=== PATIENT | female | born 1975 | race Caucasian/White ===

== ENCOUNTER 2019-05-13 06:00 | Outpatient (RCR) | payer OTHER, SELFPAY ==
[2019-04-27 07:43] VITALS: BMI 26.1
[2019-04-27 08:55] VITALS: BP 101/70; PULSE 69; RESP 18; TEMP 36.6; O2SAT 100
[2019-04-27] MEDS: vedolizumab 300 MG in sodium chloride 0.9% 250 ML 500 MG IV (09:07)
[2019-05-11 06:12] VITALS: BP 106/58; PULSE 77; RESP 18; TEMP 36.3; O2SAT 97
--- NOTE | 2019-05-11 08:05 | PC.NURSE ---
PHARMACY DIDN'T HAVE MEDICATION. PT WILL HAVE TO COME BACK FRIDAY
[2019-05-13 06:10] VITALS: BP 111/74; PULSE 78; RESP 18; TEMP 36.4; O2SAT 97
[2019-05-13] MEDS: vedolizumab 300 MG in sodium chloride 0.9% 250 ML 500 MG IV (06:34)
== END 2019-05-21 23:59 | disposition home or self-care (01) ==
LOC: OPS 06:00
PROVIDERS: Family Provider Family Medicine; PCP Family Medicine; Visit Provider Internal Medicine
DX: K51.90 Ulcerative colitis, unspecified, without complications (principal)
CPT/HCPCS: 96365; J3380; J7050

== ENCOUNTER 2019-06-22 06:09 | Outpatient (CLI) | payer OTHER, SELFPAY ==
[2019-06-22 06:26] VITALS: BP 109/63; PULSE 81; RESP 18; TEMP 36.4; O2SAT 98; BMI 25.7
[2019-06-22] MEDS: vedolizumab 300 MG in sodium chloride 0.9% 250 ML 500 MG IV (06:45)
== END 2019-06-22 06:10 | disposition home or self-care (01) ==
PROVIDERS: Family Provider Family Medicine; PCP Family Medicine; Visit Provider Internal Medicine
DX: K51.90 Ulcerative colitis, unspecified, without complications (principal)
CPT/HCPCS: 96365; J3380; J7050

== ENCOUNTER → 2019-08-24 07:29 | Day surgery (SDC) | payer OTHER, SELFPAY ==
[2019-08-24] MEDS: vedolizumab 300 MG in sodium chloride 0.9% 250 ML 500 MG IV (09:30)
[2019-08-24 10:15] VITALS: BP 106/75; PULSE 80; RESP 16; TEMP 36.3; O2SAT 99
== END ==
PROVIDERS: Family Provider Family Medicine; PCP Family Medicine; Visit Provider Internal Medicine
DX: K51.90 Ulcerative colitis, unspecified, without complications (principal)
CPT/HCPCS: 96365; J3380; J7050

== ENCOUNTER 2019-08-30 08:35 | Outpatient (CLI) | payer OTHER, SELFPAY ==
--- NOTE | 2019-08-30 08:41 | XR_ITS ---
WS: [id number] RIGHT FOOT: 3 VIEW(S) TECHNIQUE: AP, oblique and lateral. HISTORY: Right Navicular pain COMPARISON: None available. No acute fracture or dislocation. Normal tarsal/metatarsal alignment. No soft tissue abnormality or bone destruction. XR/XR foot RT min 3V* [id number] IMPRESSION: Normal RIGHT foot.
== END 2019-08-30 08:36 | disposition home or self-care (01) ==
LOC: RAD 08:38
PROVIDERS: Family Provider Family Medicine; PCP Family Medicine; Visit Provider Podiatrist Foot & Ankle Surgery
DX: M79.671 Pain in right foot (principal)
CPT/HCPCS: 73630

== ENCOUNTER 2019-09-16 12:51 | Outpatient (CLI) | payer OTHER, SELFPAY ==
--- NOTE | 2019-09-16 12:56 | MR_ITS ---
WS: [id number] INDICATION: Navicular fracture TECHNIQUE: MR of the right foot without gadolinium enhancement. Sagittal PD, sagittal STIR, sagittal T1, axial T1, coronal PD, axial PD, axial T2, axial STIR. Coronal T2 fat sat. FINDINGS: Correlation radiograph August 30, 2019 Diffuse T2 signal abnormality involving the navicular with central longitudinal nondisplaced fracture . Diffuse surrounding soft tissue edema. Normal talar neck. Normal talar dome. Additional small amou nt of edema along the anterior calcaneus extending to the sinus Tarsi consistent with additional nond isplaced fracture. Fracture line is visualized on the T1 imaging with slight depression at the sinus Tarsi and middle facet. Distal Achilles appears normal. Normal plantar fascia. Normal cuboid and cuneiforms. Peroneal tendons appear normal. Normal visualized extensor and flexor compartment tendons. MR/MR foot RT wo con* [id number] IMPRESSION: 1. Diffuse edema involving the navicular with longitudinal nondisplaced fractu re centrally. Surrounding soft tissue edema. 2. Talus and adjacent tarsal bones are normal in appearance. 3. Additional tiny nondisplaced fracture along the sinus tarsi extending into the anterior process of the calcaneus. Associated edema in the calcaneus.
== END 2019-09-16 12:52 | disposition home or self-care (01) ==
LOC: RADWPI 12:54
PROVIDERS: Family Provider Family Medicine; PCP Family Medicine; Visit Provider Podiatrist Foot & Ankle Surgery
DX: S92.254A Nondisplaced fracture of navicular [scaphoid] of right foot, initial encounter for closed fracture (principal); S92.811A Other fracture of right foot, initial encounter for closed fracture; X58.XXXA Exposure to other specified factors, initial encounter; R60.9 Edema, unspecified
CPT/HCPCS: 73718

== ENCOUNTER 2019-09-16 16:51 | Outpatient (CLI) | payer OTHER, SELFPAY | END 2019-09-16 16:52 | disposition home or self-care (01) | LOC: SPT 16:51 | PROVIDERS: Family Provider Family Medicine; PCP Family Medicine; Visit Provider Podiatrist Foot & Ankle Surgery | DX: Z46.89 Encounter for fitting and adjustment of other specified devices (principal); M76.821 Posterior tibial tendinitis, right leg | CPT/HCPCS: 97760; L3030; L4361 ==

== ENCOUNTER → 2019-10-27 08:17 | Outpatient (BNVA) | payer OTHER, SELFPAY | PROVIDERS: Family Provider Family Medicine; PCP Family Medicine; Visit Provider Podiatrist Foot & Ankle Surgery | DX: M79.671 Pain in right foot (principal); S92.254A Nondisplaced fracture of navicular [scaphoid] of right foot, initial encounter for closed fracture; X58.XXXA Exposure to other specified factors, initial encounter | CPT/HCPCS: 73630 ==

== ENCOUNTER 2019-10-27 10:36 | Outpatient (CLI) | payer OTHER, SELFPAY | END 2019-10-27 10:37 | disposition home or self-care (01) | LOC: SPT 10:36 | PROVIDERS: Family Provider Family Medicine; PCP Family Medicine; Visit Provider Podiatrist Foot & Ankle Surgery | DX: Z46.89 Encounter for fitting and adjustment of other specified devices (principal); M76.821 Posterior tibial tendinitis, right leg | CPT/HCPCS: L4361 ==

== ENCOUNTER → 2019-11-18 13:34 | Outpatient (BNVA) | payer OTHER, SELFPAY | PROVIDERS: Family Provider Family Medicine; PCP Family Medicine; Visit Provider Podiatrist Foot & Ankle Surgery | DX: S92.254D Nondisplaced fracture of navicular [scaphoid] of right foot, subsequent encounter for fracture with routine healing (principal) | CPT/HCPCS: 73610 ==

== ENCOUNTER → 2019-12-13 14:13 | Outpatient (BNVA) | payer OTHER, SELFPAY | PROVIDERS: Family Provider Family Medicine; PCP Family Medicine; Visit Provider Podiatrist Foot & Ankle Surgery | DX: S92.254D Nondisplaced fracture of navicular [scaphoid] of right foot, subsequent encounter for fracture with routine healing (principal); M79.671 Pain in right foot; X58.XXXD Exposure to other specified factors, subsequent encounter | CPT/HCPCS: 73630 ==

== ENCOUNTER 2019-12-15 10:06 | Outpatient (CLI) | payer OTHER, SELFPAY ==
--- NOTE | 2019-12-15 10:15 | XRR_ITS ---
PROCEDURE INFORMATION: Exam: XR Left Shoulder Exam date and time: 12/15/2019 10:27 AM Age: 44 years old Clinical indication: Pain and injury or trauma; Fall; Initial encounter; Blunt trauma (contusions or hematomas; Shoulder; Left; Injury details: Fell while using knee scooter 6 weeks ago; Additional info: Left shoulder pain TECHNIQUE: Imaging protocol: XR Left shoulder. Views: 2 or more views. COMPARISON: No relevant prior studies available. FINDINGS: Bones/joints: Normal. Soft tissues: Normal. XR/XR shoulder LT min 2V* [id number] IMPRESSION: No acute findings.
== END 2019-12-15 10:07 | disposition home or self-care (01) ==
LOC: RAD 10:10
PROVIDERS: PCP Family Medicine; Visit Provider Orthopaedic Surgery
DX: M25.512 Pain in left shoulder (principal)
CPT/HCPCS: 73030

== ENCOUNTER 2020-01-12 12:55 | Outpatient (CLI) | payer OTHER, SELFPAY ==
--- NOTE | 2020-01-12 13:05 | MR_ITS ---
WS: [id number] MRI LEFT SHOULDER ARTHROGRAM HISTORY: PAIN COMPARISON: Radiographs 12/15/2019. TECHNIQUE: Pre and postcontrast imaging. Gadolinium mixture was injected under fluoroscopy. Coronal T 1 fat sat, sagittal T2 fat sat, coronal T2 fat sat, axial proton density, axial T1 nonfat saturation and ABER sagittal T1 fat sat views are submitted. Prearthrogram imaging: Mild degenerative arthritis at the AC joint. Small osteophytes extend towards the supraspinatus muscle and tendon. There is a very minimal amount of subacromial and subdeltoid flu id. Moderate amount of marrow edema in the superior medial humeral head. There is flattening of the magno x of the medial humeral head with loss of the normal overlying cortical signal. Consistent with trabe cular injury and compression fracture. Abnormal marrow signal extends into the humeral neck. Abnormal signal and shape of the anterior labrum. Biceps tendon remains within the bicipital groove. Abnormal signal in the middle glenohumeral ligament. No definite rotator cuff tear is identified. Post arthrogram imaging: No contrast extending through the rotator cuff into the subacromial or subdeltoid bursa. Biceps tendo n remains in normal position. The middle glenohumeral ligament is redundant and partially torn distally. The anterior labrum is parish bular shape. On the precontrast sequences there is abnormal signal within the labrum. Contrast does n ot extend into the anterior labrum but still suspect abnormal labrum. MR/MR shoulder LT wo/w con [id number] IMPRESSION: 1. No rotator cuff tear. 2. Marrow edema with trabecular injury and cortical fracture involving the sup erior medial humeral head. 3. Partially torn middle glenohumeral ligament. 4. Highly suspicious for tear involving the anterior labrum. On the precontras t imaging there is abnormal signal and shape of the anterior labrum. Post arthr ogram imaging there is a lobulated shape of the labrum but no contrast extendin g into the suspected labral tear. 5. Biceps tendon remains in good position. 6. Mild AC joint arthritis.
--- NOTE | 2020-01-12 13:06 | IR_ITS ---
WS: [id number] LEFT SHOULDER ARTHROGRAM UNDER FLUOROSCOPY. PRIOR TO MRI EVALUATION. HISTORY: LEFT SHOULDER PAIN COMPARISON: None available. FLUOROSCOPY TIME: 1.5 minutes. Procedure, risks and complications were explained to the patient. Consent has been obtained. Under fluoroscopic guidance the skin is marked over the medial superior third of the humeral head, cl eansed with ChloraPrep and anesthetized with lidocaine. 22-gauge spinal needle is inserted to the cor trevon of the humeral head. Test injection with Omnipaque reveals the needle is appropriately positioned in the joint. A mixture of 10 cc sterile saline, 5 cc Omnipaque and 0.1 mmol gadolinium are injected under fluoroscopic guidance. Patient tolerated the joint distention well. No complications. Good distention of the joint space with contrast. No extravasation. IR/IR arthrogram shoulderLT [id number] IMPRESSION: Uncomplicated LEFT shoulder joint injection prior to MRI.
[2020-01-12] MEDS: iohexol 240 mg/mL 50 mL Btl INTRA-ARTI (14:37)
== END 2020-01-12 12:56 | disposition home or self-care (01) ==
LOC: RADWPI 13:00
PROVIDERS: Family Provider Family Medicine; PCP Family Medicine; Visit Provider Orthopaedic Surgery
DX: S43.492A Other sprain of left shoulder joint, initial encounter (principal); X58.XXXA Exposure to other specified factors, initial encounter; M13.812 Other specified arthritis, left shoulder
CPT/HCPCS: 23350; 73040; 73223; 77002; Q9966

== ENCOUNTER → 2020-01-17 14:17 | Outpatient (BNVA) | payer OTHER, SELFPAY | PROVIDERS: Family Provider Family Medicine; PCP Family Medicine; Visit Provider Podiatrist Foot & Ankle Surgery | DX: S92.254D Nondisplaced fracture of navicular [scaphoid] of right foot, subsequent encounter for fracture with routine healing (principal); X58.XXXD Exposure to other specified factors, subsequent encounter; M79.671 Pain in right foot | CPT/HCPCS: 73630 ==

== ENCOUNTER → 2020-01-28 11:31 | Outpatient (BNVA) | payer OTHER, SELFPAY | PROVIDERS: Family Provider Family Medicine; PCP Family Medicine; Visit Provider Family Medicine | DX: Z20.828 Contact with and (suspected) exposure to other viral communicable diseases (principal) | CPT/HCPCS: 87635 ==

== ENCOUNTER 2020-02-03 15:36 | Outpatient (RCR) | payer OTHER, SELFPAY | END 2020-02-19 23:59 | disposition home or self-care (01) | LOC: SPT 15:36 | PROVIDERS: PCP Family Medicine; Referring Provider Orthopaedic Surgery; Visit Provider Orthopaedic Surgery | DX: M75.02 Adhesive capsulitis of left shoulder (principal); M87.812 Other osteonecrosis, left shoulder | CPT/HCPCS: 97110; 97140; 97161 ==

== ENCOUNTER 2020-02-20 06:00 | Outpatient (RCR) | payer OTHER, SELFPAY | END 2020-03-20 23:59 | disposition home or self-care (01) | LOC: SPT 06:00 | PROVIDERS: PCP Family Medicine; Referring Provider Orthopaedic Surgery; Visit Provider Orthopaedic Surgery | DX: M75.02 Adhesive capsulitis of left shoulder (principal); M87.8 Other osteonecrosis | CPT/HCPCS: 97110 ==

== ENCOUNTER → 2020-04-20 10:14 | Day surgery (SDC) | payer OTHER, SELFPAY ==
[2020-04-20 10:47] VITALS: BMI 27.9
[2020-04-20] MEDS: vedolizumab 300 MG in sodium chloride 0.9% 250 ML 500 MG IV (11:16)
== END ==
PROVIDERS: PCP Family Medicine; Visit Provider Internal Medicine
DX: K51.90 Ulcerative colitis, unspecified, without complications (principal)
CPT/HCPCS: 96365; J3380; J7050

== ENCOUNTER → 2020-05-22 18:30 | Outpatient (BNVA) | payer OTHER, SELFPAY | PROVIDERS: PCP Family Medicine; Visit Provider Nurse Practitioner | DX: M25.412 Effusion, left shoulder (principal) | CPT/HCPCS: 73030 ==

== ENCOUNTER → 2020-06-27 12:24 | Day surgery (SDC) | payer OTHER, SELFPAY ==
--- NOTE | 2020-06-23 11:08 | PM.MISC ---
Miscellaneous Note Purpose of Documentation: Entyvio infusion Note: Patient is a 45-year-old white female who has a known diagnosis of ulcerative colitis who was evaluated today for her Entyvio infusion. She has received 1 before and it was effective.
[2020-06-27] MEDS: vedolizumab 300 MG in sodium chloride 0.9% 250 ML 500 MG IV (12:20)
[2020-06-27 12:30] VITALS: BP 120/77; PULSE 80; RESP 18; TEMP 36.3; O2SAT 98
== END | disposition home or self-care (01) ==
PROVIDERS: PCP Family Medicine; Visit Provider Internal Medicine
DX: K51.90 Ulcerative colitis, unspecified, without complications (principal)
CPT/HCPCS: 96360; 96365; J3380; J7050

== ENCOUNTER 2020-07-26 05:49 | Inpatient (IN) | payer OTHER, SELFPAY ==
[2020-07-26] VITALS (48 sets, daily range): BP systolic 88–138; BP diastolic 56–93; PULSE 69–175; RESP 12–35; TEMP 36.6–37.1; O2SAT 95–100; BMI 28.4
[2020-07-26] MEDS: adenosine 3 mg/mL SDV 2mL 18 MG (06:05)
--- NOTE | 2020-07-26 06:08 | XR_ITS ---
WS: [id number] Portable AP upright chest, 07/26/2020 Clinical Data: Cough Comparison: PA and lateral chest, 01/24/2019. Findings: No nodules, masses or effusions are seen. The heart is normal. The pulmonary vascularity is not increased. No pneumonia or pneumothorax is seen. Monitor leads are on the chest wall. XR/XR chest 1V portable [id number] Impression: Negative chest.
--- NOTE | 2020-07-26 06:08 | ECG_ITS ---
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: : [id number] Requested By: Adarsh Frias Order Number: [id number] Riya MD: WILLIAM IRWIN Measurements Intervals [place] Rate: 178 P: UT: QRS: 46 QRSD: 72 T: 31 QT: 240 QTc: 413 Interpretive Statements ATRIAL FIBRILLATION WITH RAPID VENTRICULAR RESPONSE NONSPECIFIC ST & T-WAVE ABNORMALITY ABNORMAL RHYTHM ECG WARNING: DATA QUALITY MAY AFFECT INTERPRETATION Compared to ECG 01/28/2017 06:05:08 T-wave abnormality now present Sinus rhythm no longer present Sinus arrhythmia no longer present Short UT interval no longer present Electronically Signed On 07-26-2020 20:22:23 CDT by WILLIAM IRWIN [id number]
--- NOTE | 2020-07-26 06:08 | W.ED.ARRPALP ---
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 Upon arrival patient appeared to be in SVT/A. fib with RVR with a rate anywhere from 1 80-210. Patient was quickly placed in stretcher IV established for IV fluid bolus. Patient was given 6 mg IV push of adenosine followed by an additional 12 patient did have some cardiac pause but then would jump right back into a SVT/ RVR type rhythm. Patient was given 10 mg bolus of Cardizem IV push but did not seem to have a good response in the heart. Patient's heart rate at this time is 138 patient was started on a Cardizem drip. Patient states she is feeling improvement. Will do medical evaluation treat as needed. Patient states she has no history of this in the past. MD complaint: rapid heart beat and palpitations Severity: severe Associated symptoms: Deny anxiety, nausea or vomiting Review of Systems General: Reports: 10 or more systems reviewed and unremarkable except in HPI and below Const: Denies: fever(s), chills, body aches or fatigue Eyes: Denies: change in vision or blurry vision ENMT: Denies: throat pain, hoarseness or mouth pain Card: Reports: palpitations; Denies: chest pain, irregular heart rhythm, edema, swelling of feet/ankles or lightheadedness Resp: Reports: dyspnea; Denies: productive cough, non-productive cough, wheezing or pain on inspiration GI: Denies: abdominal pain, nausea or vomiting : Denies: flank pain, difficulty voiding, dysuria, urinary frequency, urinary urgency or urinary hesitancy Musc: Denies: neck pain, back pain, extremity pain, extremity swelling, joint pain, joint swelling, joint redness, joint warmth or limited range of motion Skin/Breast: Denies: rash, pruritus, erythema or skin tenderness Neuro: Reports: dizziness; Denies: headache(s), numbness in extremities or weakness in extremities Psych: Denies: anxiety or depression PENDING SALE TO [facility] ED PFSH: Medical History (Updated 07/26/20 @ 07:18 by Adarsh Frias MD) Asthma Breast cancer, right breast (09/05/16) 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 S/P B/L mastectomy Ulcerative colitis Surgical History H/O bilateral mastectomy (12/09/16) Has had reconstructive surgery since then (8 different surgeries). H/O right breast biopsy (09/05/16) Diagnosis: ductal carcinoma in situ. Performed by Dr. Ruelas at [facility] in [place], [place]. Reoperation on 09/12/2016 due to positive margins. Final pathology: ductal carcinoma in situ. H/O umbilical hernia repair (~1993) History of endometrial ablation (03/19/12) Hysteroscopic hydrothermal endometrial ablation. Performed by Dr. Mishra at [facility] in [place], [place]. Hx of appendectomy (~07/2010) Performed by Dr. Ruelas at [facility] in [place], [place] Hx of rhinoplasty (~02/2006) Hx of tonsillectomy (~01/2002) Hx of tubal ligation (09/13/09) Tubal ligation (Jesse procedure) at time of section. Performed by Dr. Mishra at [facility] in [place], [place] S/P laparoscopic hysterectomy (03/30/13) TLH with BS. Performed by Dr. Mishra at [facility] in [place], [place] Status post primary low transverse section (02/03/07) Performed by Dr. Becerril at [facility] in [place], [place] Status post repeat low transverse section (09/13/09) With BTL. Performed by Dr. Mishra at [facility] in [place], [place] Family History Grandmother Colon cancer Paternal Thyroid disease Sister Thyroid disease Father Thyroid disease Grandfather Thyroid disease Mother Colon cancer Social History Smoking and tobacco status: never smoked Alcohol intake: current Alcohol intake frequency: few times a week Marital status: History of recent travel: No Physical Exam Const: COMMON NORMALS: no acute distress, average body habitus, patient oriented x3, no limitations, healthy appearing, alert and well nourished HENMT: COMMON NORMALS: normocephalic, atraumatic, hearing grossly normal bilaterally, external ears normal, EAC's normal, TM's normal bilaterally, Normal external nose present, Normal nasal mucous membranes and turbinates present, moist oral mucous membranes, oropharynx normal, dentition normal and gingiva normal HEAD & SCALP: normocephalic and atraumatic NOSE: Normal external nose present and Normal nasal mucous membranes and turbinates present EXTERNAL EAR: Yes external ears normal EXTERNAL AUDITORY CANAL: EAC's normal TYMPANIC MEMBRANE: TM's normal bilaterally Neck/C-Spine: COMMON NORMALS: full ROM, no lymphadenopathy, supple, no meningeal signs, no JVD, Thyroid normal and No carotid bruits THYROID: Thyroid normal Chest: COMMONS NORMALS: normal inspection of the chest, normal palpation of entire chest wall, normal inspection of the breasts and normal palpation of the breasts Breast/axilla inspection: Yes normal inspection of the breasts BREAST/AXILLA PALPATION: Yes normal palpation of the breasts Resp: COMMON NORMALS: normal respiratory effort, No retractions, No use of accessory muscles, clear to auscultation bilaterally and percussion normal AUSCULTATION: clear to auscultation bilaterally PERCUSSION: percussion normal Cardio: COMMON NORMALS: no JVD, S1 normal heart sound present, S2 normal heart sound present, No gallops present (Cardio), No clicks present (Cardio), No murmurs present (Cardio), No rub (Cardio) and Peripheral pulses 2+ throughout RATE: tachycardic RHYTHM: regular rhythm (Appears to be irregular irregular.) and abnormal rhythm HEART SOUNDS: S1 normal heart sound present and S2 normal heart sound present PERIPHERAL PULSES: Peripheral pulses 2+ throughout GI: COMMON NORMALS: Normal to inspection, nondistended, normoactive bowel sounds present, Soft to palpation, non-tender, No hepatosplenomegaly present, no masses and no bruits PALPATION: Yes Soft to palpation and Yes No hepatosplenomegaly present : COMMON NORMALS: Yes no CVA tenderness, Yes normal external appearance, Yes normal appearance of the vagina, Yes normal appearance of the cervix, Yes normal bimanual exam, Yes No adnexal tenderness and Yes no masses BLADDER/KIDNEY EXAM: Yes no CVA tenderness BIMANUAL EXAM - VAGINA & UTERUS: Yes normal bimanual exam Back/Pelvis: COMMON NORMALS: no CVA tenderness, thoracic and lumbar spine normal to inspection, no thoracic nor lumbar tenderness, thoraco-lumbar ROM normal and straight leg raise negative bilaterally Extremity: COMMON NORMALS: normal to inspection, full ROM, capillary refill normal, no joint enlargement, no clubbing, cyanosis or edema, no calf tenderness and no pedal edema Neuro: COMMON NORMALS: patient oriented x3 SENSORIUM/ORIENTATION: Yes alert MENINGEAL SIGNS: Yes no meningeal signs Course Reevaluation(s): Reevaluation #1: Patient appeared to be in SVT/A. fib with RVR upon arrival. Patient was given 2 rounds of adenosine that did have some cardiac pause and slight improvement but then would rebound right back into an elevated heart rate in the 180s to 200s. Gave the patient IV push of 10 of Cardizem which did have a good cardiac response. Heart rate anywhere from 1 20-1 40. Patient be started on a Cardizem drip. Patient states she is feeling much improved. Dyspnea has resolved. Time: 06:15 Reevaluation #2: Patient doing much improved. Heart rate still bouncing in and from the 1 teens to 120s. Had to stop the Cardizem for short while due to patient's blood pressure getting low. By placing his blood pressures back to 112/84. We will restart the Cardizem at half the rate it was previously. Continue to monitor. We are waiting on hospitalist return call for admission. Time: 07:17 Reevaluation #3: Continue to monitor the patient. Patient on Cardizem drip heart rate anywhere from 110-140s. Blood pressure at this time is 119/77. Patient's blood pressure has been pretty labile related to the Cardizem. I did discuss at length with Dr. Vo he will admit the patient request cardiology to see. Time: 08:20 Consultations: Consultation #1: I discussed at length with Dr. Vo. He will admit the patient to the ICU he will see patient write additional orders. Request consult to cardiology. Time: 08:21 Consultation #2: Discussed at length with Dr. Tristin fuentes. Request echocardiogram and amiodarone drip she will see patient they will see patient and write additional orders as needed. 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 Upon arrival patient appeared to be in SVT/A. fib with RVR with a rate anywhere from 1 80-210. Patient was quickly placed in stretcher IV established for IV fluid bolus. Patient was given 6 mg IV push of adenosine followed by an additional 12 patient did have some cardiac pause but then would jump right back into a SVT/ RVR type rhythm. Patient was given 10 mg bolus of Cardizem IV push but did not seem to have a good response in the heart. Patient's heart rate at this time is 138 patient was started on a Cardizem drip. Patient states she is feeling improvement. Will do medical evaluation treat as needed. Patient states she has no history of this in the past. Differential Diagnosis: Differential diagnosis arrhythmia/palpitations: Likely palpitations, sinus tachycardia, artial fibrillation, artial flutter, ventricular premature beats, supraventricular tachycardia and ventricular tachycardia Medical Records: Attestation: I reviewed the patient's medical records. Lab Data: Attestation: I reviewed the patient's lab results. Labs: Lab Results 07/26/20 07/26/20 07/26/20 Range/Units 06:00 06:00 06:00 WBC 9.6 (4.0-10.0) 10^3/ uL RBC 4.17 (4.1-5.3) 10^6/u L Hgb 12.8 (11.5-15.3) g/dL Hct 40.0 (37.0-47.0) % MCV 95.9 (81-99) fL MCH 30.7 (28.0-34.0) pg MCHC 32.0 (30.0-36.0) g/dL RDW 12.7 (12.1-15.1) % Plt Count 283 (130-400) 10^3/c mm MPV 9.9 (7.4-10.4) fL Neut % (Auto) 62.8 % Lymph % (Auto) 24.7 % [place] % (Auto) 10.6 % Eos % (Auto) 1.5 % Baso % (Auto) 0.2 % Neut # (Auto) 6.03 (1.8-7.7) 10^3/u L Lymph # (Auto) 2.4 (0.8-4.8) 10^3/u L [place] # (Auto) 1.0 H (0.2-0.9) 10^3/u L Eos # (Auto) 0.1 (0.0-0.8) 10^3/u L Baso # (Auto) 0.0 (0.0-0.1) 10^3/u L Nucleated RBC % (a uto) 0 % Nucleated RBCs # 0.0 /100WBC PT 12.70 (12.1-14.9) SECO NDS INR 0.93 (0.8-1.2) APTT 27.5 (23.9-36.7) SECO NDS Sodium 141 (136-145) mmol/L Potassium 3.5 (3.5-5.1) mmol/L Chloride 105 (98-107) mmol/L Carbon Dioxide 26 (22-29) mmol/L Anion Gap 13.5 (5-19) BUN 14 (6-20) mg/dL Creatinine 0.5 (0.5-0.9) mg/dL GFR Calculation 132.8 H (90-130) mL/min Glucose 95 (65-115) mg/dL Calculated Osmolal ity 292 (285-295) mOsm/k g Calcium 9.0 (8.5-10.5) mg/dL Total Bilirubin 0.5 (0.15-1.2) mg/dL AST 30 (0-32) U/L ALT 46 H (0-33) U/L Alkaline Phosphata se 61 (35-105) IU/L Troponin T Baselin e (0-10) ng/L Troponin T 120 Min tejon (0-10) ng/L Delta Troponin T (0-10) ABS# NT-Pro-B Natriuret Pep 125 (0-125) pg/mL Total Protein 6.9 (6.6-8.7) g/dL Albumin 4.5 (3.5-5.2) g/dL Globulin 2.4 (1.3-4.6) g/dL Urine Color (Yellow) Urine Appearance (CLEAR) Urine pH (5-7) Ur Specific Gravit y (1.005-1.030) Urine Protein (Negative) Urine Glucose (UA) (Normal) Urine Ketones (Negative) Urine Blood (Negative) Urine Nitrate (Negative) Urine Bilirubin (Negative) Prot Sulfosalicyli c Acd (Negative) Urine Urobilinogen (Negative) mg/dL Ur Leukocyte Sheba ase (Negative) Urine Opiates Scre en (Negative) ng/mL Ur Barbiturates Sc reen (Negative) ng/mL Ur Phencyclidine S crn (Negative) ng/mL Ur Amphetamines Sc reen (Negative) ng/mL U Benzodiazepines Scrn (Negative) ng/mL Urine Cocaine Scre en (Negative) ng/mL U Marijuana (THC) Screen (Negative) ng/mL 07/26/20 07/26/20 07/26/20 Range/Units 06:00 06:50 06:50 WBC (4.0-10.0) 10^3/ uL RBC (4.1-5.3) 10^6/u L Hgb (11.5-15.3) g/dL Hct (37.0-47.0) % MCV (81-99) fL MCH (28.0-34.0) pg MCHC (30.0-36.0) g/dL RDW (12.1-15.1) % Plt Count (130-400) 10^3/c mm MPV (7.4-10.4) fL Neut % (Auto) % Lymph % (Auto) % [place] % (Auto) % Eos % (Auto) % Baso % (Auto) % Neut # (Auto) (1.8-7.7) 10^3/u L Lymph # (Auto) (0.8-4.8) 10^3/u L [place] # (Auto) (0.2-0.9) 10^3/u L Eos # (Auto) (0.0-0.8) 10^3/u L Baso # (Auto) (0.0-0.1) 10^3/u L Nucleated RBC % (a uto) % Nucleated RBCs # /100WBC PT (12.1-14.9) SECO NDS INR (0.8-1.2) APTT (23.9-36.7) SECO NDS Sodium (136-145) mmol/L Potassium (3.5-5.1) mmol/L Chloride (98-107) mmol/L Carbon Dioxide (22-29) mmol/L Anion Gap (5-19) BUN (6-20) mg/dL Creatinine (0.5-0.9) mg/dL GFR Calculation (90-130) mL/min Glucose (65-115) mg/dL Calculated Osmolal ity (285-295) mOsm/k g Calcium (8.5-10.5) mg/dL Total Bilirubin (0.15-1.2) mg/dL AST (0-32) U/L ALT (0-33) U/L Alkaline Phosphata se (35-105) IU/L Troponin T Baselin e 10 (0-10) ng/L Troponin T 120 Min tejon (0-10) ng/L Delta Troponin T (0-10) ABS# NT-Pro-B Natriuret Pep (0-125) pg/mL Total Protein (6.6-8.7) g/dL Albumin (3.5-5.2) g/dL Globulin (1.3-4.6) g/dL Urine Color Straw (Yellow) Urine Appearance Clear (CLEAR) Urine pH 8 H (5-7) Ur Specific Gravit y 1.010 (1.005-1.030) Urine Protein Neg (Negative) Urine Glucose (UA) Norm (Normal) Urine Ketones 1+ H (Negative) Urine Blood Neg (Negative) Urine Nitrate Negative (Negative) Urine Bilirubin Neg (Negative) Prot Sulfosalicyli c Acd Negative (Negative) Urine Urobilinogen Norm (Negative) mg/dL Ur Leukocyte Sheba ase Negative (Negative) Urine Opiates Scre en Negative (Negative) ng/mL Ur Barbiturates Sc reen Negative (Negative) ng/mL Ur Phencyclidine S crn Negative (Negative) ng/mL Ur Amphetamines Sc reen Negative (Negative) ng/mL U Benzodiazepines Scrn Negative (Negative) ng/mL Urine Cocaine Scre en Negative (Negative) ng/mL U Marijuana (THC) Screen Negative (Negative) ng/mL 07/26/20 Range/Units 08:04 WBC (4.0-10.0) 10^3/ uL RBC (4.1-5.3) 10^6/u L Hgb (11.5-15.3) g/dL Hct (37.0-47.0) % MCV (81-99) fL MCH (28.0-34.0) pg MCHC (30.0-36.0) g/dL RDW (12.1-15.1) % Plt Count (130-400) 10^3/c mm MPV (7.4-10.4) fL Neut % (Auto) % Lymph % (Auto) % [place] % (Auto) % Eos % (Auto) % Baso % (Auto) % Neut # (Auto) (1.8-7.7) 10^3/u L Lymph # (Auto) (0.8-4.8) 10^3/u L [place] # (Auto) (0.2-0.9) 10^3/u L Eos # (Auto) (0.0-0.8) 10^3/u L Baso # (Auto) (0.0-0.1) 10^3/u L Nucleated RBC % (a uto) % Nucleated RBCs # /100WBC PT (12.1-14.9) SECO NDS INR (0.8-1.2) APTT (23.9-36.7) SECO NDS Sodium (136-145) mmol/L Potassium (3.5-5.1) mmol/L Chloride (98-107) mmol/L Carbon Dioxide (22-29) mmol/L Anion Gap (5-19) BUN (6-20) mg/dL Creatinine (0.5-0.9) mg/dL GFR Calculation (90-130) mL/min Glucose (65-115) mg/dL Calculated Osmolal ity (285-295) mOsm/k g Calcium (8.5-10.5) mg/dL Total Bilirubin (0.15-1.2) mg/dL AST (0-32) U/L ALT (0-33) U/L Alkaline Phosphata se (35-105) IU/L Troponin T Baselin e (0-10) ng/L Troponin T 120 Min tejon 16.32 H (0-10) ng/L Delta Troponin T 6.32 (0-10) ABS# NT-Pro-B Natriuret Pep (0-125) pg/mL Total Protein (6.6-8.7) g/dL Albumin (3.5-5.2) g/dL Globulin (1.3-4.6) g/dL Urine Color (Yellow) Urine Appearance (CLEAR) Urine pH (5-7) Ur Specific Gravit y (1.005-1.030) Urine Protein (Negative) Urine Glucose (UA) (Normal) Urine Ketones (Negative) Urine Blood (Negative) Urine Nitrate (Negative) Urine Bilirubin (Negative) Prot Sulfosalicyli c Acd (Negative) Urine Urobilinogen (Negative) mg/dL Ur Leukocyte Sheba ase (Negative) Urine Opiates Scre en (Negative) ng/mL Ur Barbiturates Sc reen (Negative) ng/mL Ur Phencyclidine S crn (Negative) ng/mL Ur Amphetamines Sc reen (Negative) ng/mL U Benzodiazepines Scrn (Negative) ng/mL Urine Cocaine Scre en (Negative) ng/mL U Marijuana (THC) Screen (Negative) ng/mL Imaging Data^: CXR: Attestation: I personally reviewed and interpreted this imaging study as follows: My impression: No acute findings. But does does appear to have a right ventricular hypertrophy. EKG Data^: EKG 1: Attestation: I personally reviewed and interpreted this EKG as follows: EKG interpretation date: 07/26/20 EKG interpretation time: 06:00 Interpretation: Atrial fibrillation with rapid ventricular response nonspecific T wave changes heart rate 178. Initially on the monitor at the bedside appeared to be in SVT rhythm EKG 2: Attestation: I personally reviewed and interpreted this EKG as follows: EKG interpretation date: 07/26/20 EKG interpretation time: 06:14 Prior EKG tracings: available for review Interpretation: Atrial fibrillation with RVR heart rate 117 much improved from previous EKG. Critical Care Time Critical Care Time: Critical Care Time: Yes Total Critical Care Time: 140 Attestation: Patient significant atrial fibrillation with RVR new onset very labile blood pressures related to medications causing hypotension. Coordinating with specialist and other physician. Readdress physical exam on patient multiple times. Discharge Plan Discharge Patient Disposition: Placed in Observation Clinical Impression: Atrial fibrillation with rapid ventricular response Coding Level of Care Code ED Policy Checker for Chg Fwd Exam Comprehensive
[2020-07-26] MEDS: sodium chloride 0.9% 1,000 ML 999 ML IV (06:13)
[2020-07-26 06:14] LABS: Basophils % 0.2 %; Eosinophils # 0.1 10^3/uL (0.0-0.8); Eosinophils % 1.5 %; Hemoglobin 12.8 g/dL (11.5-15.3); Lymphocytes # 2.4 10^3/uL (0.8-4.8); Lymphocytes % 24.7 %; Mean Corpuscular Hemoglobin 30.7 pg (28.0-34.0); Mean Corpuscular Volume 95.9 fL (81-99); Mean Platelet Volume 9.9 fL (7.4-10.4); Monocytes % 10.6 %; Neutrophils # 6.03 10^3/uL (1.8-7.7); Neutrophils % 62.8 %; Nucleated Red Blood Cells % 0 %; Platelet Count 283 10^3/cmm (130-400); Red Blood Count 4.17 10^6/uL (4.1-5.3); Red Cell Distribution Width 12.7 % (12.1-15.1); White Blood Count 9.6 10^3/uL (4.0-10.0)
[2020-07-26] MEDS: ondansetron 2 mg/ML SDV 2 mL 4 MG IVP ×2 (06:15→22:06)
[2020-07-26 06:30] LABS: Troponin(5th) Baseline 10 ng/L (0-10)
[2020-07-26 06:35] LABS: Alanine Aminotransferase 46 U/L (0-33); Albumin Level 4.5 g/dL (3.5-5.2); Alkaline Phosphatase 61 IU/L (35-105); Anion Gap 13.5 (5-19); Aspartate Amino Transferase 30 U/L (0-32); Blood Urea Nitrogen 14 mg/dL (6-20); Carbon Dioxide 26 mmol/L (22-29); Chloride 105 mmol/L (98-107); Globulin 2.4 g/dL (1.3-4.6); Glomerular Filtration Rate 132.8 mL/min (90-130); Glucose 95 mg/dL (65-115); NT Pro B Type Natriuretic Pept 125 pg/mL (0-125); Osmolality Calculated 292 mOsm/kg (285-295); Potassium 3.5 mmol/L (3.5-5.1); Sodium 141 mmol/L (136-145); Total Bilirubin 0.5 mg/dL (0.15-1.2); Total Protein 6.9 g/dL (6.6-8.7)
[2020-07-26 06:38] LABS: INR 0.93 (0.8-1.2)
[2020-07-26 06:39] LABS: Partial Thromboplastin Time 27.5 SECONDS (23.9-36.7)
[2020-07-26 06:56] LABS: Add Urine Microscopic? NO; Charge for UA Resulting for Rev
--- NOTE | 2020-07-26 07:01 | PC.NURSE ---
Pt resting in bed. Pt complaining of dizziness. Pt request to lay down, and try to sleep.
[2020-07-26 07:07] LABS: Amphetamines Screen Urine Negative (Negative); Barbiturates Screen Urine Negative (Negative); Benzodiazepines Screen Urine Negative (Negative); Cocaine Screen Urine Negative (Negative); Opiate Screen Urine Negative (Negative); PCP Screen Urine Negative (Negative); THC Screen Urine Negative (Negative)
[2020-07-26 07:12] LABS: Bilirubin Urine Neg (Negative); Blood Urine Neg (Negative); Glucose Urine UA Norm (Normal); Ketones Urine 1+ (Negative); Leukocyte Esterase Urine Negative (Negative); Nitrate Urine Negative (Negative); Protein Urine Neg (Negative); Sulfosalicylic Acid Urine Negative (Negative); Urine Appearance Clear (CLEAR); Urine Color Straw (Yellow); Urobilinogen Urine Norm (Negative); pH Urine 8 (5-7)
--- NOTE | 2020-07-26 08:09 | ECG_ITS ---
[facility] Test Date: 2020-07-26 Pat Name: Alondra Wise Department: Room: Gender: Female Dog Barber: JAYDA DELAROSAB: 1975 Requested By: Adarsh Frias Order Number: [id number] Reading MD: WILLIAM IRWIN Measurements Intervals [place] Rate: 143 P: MN: QRS: 61 QRSD: 74 T: 48 QT: 278 QTc: 429 Interpretive Statements ATRIAL FIBRILLATION WITH RAPID VENTRICULAR RESPONSE POSSIBLE RIGHT VENTRICULAR CONDUCTION DELAY [RSR (QR) IN V1/V2] ABNORMAL RHYTHM ECG Compared to ECG 07/26/2020 06:00:41 T-wave abnormality no longer present Electronically Signed On 07-26-2020 20:26:49 CDT by WILLIAM IRWIN [id number]
[2020-07-26 08:36] LABS: Troponin 5 2HR 16.32 ng/L (0-10); Troponin 5 2HR Delta 6.32 ABS# (0-10)
[2020-07-26] MEDS: sodium chloride 0.9% 1,000 ML 100 ML IV (08:39)
[2020-07-26] MEDS: enoxaparin 80 mg/0.8 mL Syringe SUBCUT ×2 (09:18→19:55)
--- NOTE | 2020-07-26 09:46 | USCV_ITS ---
Alondra Wise Age: 45 Gender: F : 1975 Exam Date: 07/26/2020 10:08 Ordering Phys: Rk Vo MD Technologist: Shari Kitchen Exam Location: [facility] [place] Indication: AFIB BP: 105 / 89 HR: 117 Rhythm: Atrial fibrillation Technical Quality: Adequate MEASUREMENTS (Male / Female) Normal Values 2D ECHO LV Diastolic Diameter PLAX 3.3 cm 4.2 - 5.9 / 3.9 - 5.3 cm LV Systolic Diameter PLAX 2.6 cm LV Chamber Size 2.5 cm IVS Diastolic Thickness 1.3 cm 0.6 - 1.0 / 0.6 - 0.9 cm IVS Systolic Thickness 1.2 cm LVPW Diastolic Thickness 1.6 cm 0.6 - 1.0 / 0.6 - 0.9 cm LVPW Systolic Thickness 1.6 cm RV Chamber Size 2.1 cm LVOT Diameter 2.0 cm LV Ejection Fraction 2D Teich 42.6 % LV Ejection Fraction MOD 2C 45.7 % LV Ejection Fraction 2C AL 47.5 % LA Diameter 3.3 cm LA Width 2.8 cm LA Height 4.1 cm RA Width 2.2 cm RA Height 3.5 cm Aorta at Sinotubular Diameter 2.6 cm M-MODE LV Diastolic Diameter MM 3.7 cm 4.2 - 5.9 / 3.9 - 5.3 cm LV Systolic Diameter MM 2.6 cm LV Ejection Fraction MM Teich 57.2 % IVS Diastolic Thickness MM 0.6 cm 0.6 - 1.0 / 0.6 - 0.9 cm IVS Systolic Thickness MM 0.8 cm LVPW Diastolic Thickness MM 0.6 cm 0.6 - 1.0 / 0.6 - 0.9 cm LVPW Systolic Thickness MM 1.1 cm Aortic Annulus Diameter 2.5 cm LA Ao Ratio MM 1.4 MV E Point Septal Separation 0.4 cm DOPPLER AV Peak Velocity 121.3 cm/s LVOT Peak Velocity 103.0 cm/s AV Area Cont Eq vti 2.7 cm squared AV Area Cont Eq pk 2.7 cm squared MV Area PHT 2.5 cm squared Mitral E to A Ratio 3.6 MV E' Velocity 58.5 cm/s Mitral E to MV E' Ratio 6.2 Mitral E to LV E' Lateral Ratio 6.2 Mitral E to LV E' Septal Ratio 6.2 TR Peak Velocity 236.5 cm/s TR Peak Gradient 22.4 mmHg TV Peak E Velocity 77.0 cm/s Right Atrial Pressure 3.0 mmHg Pulmonary Artery Systolic Pressu 25.4 mmHg PV Peak Velocity 87.0 cm/s RV Acceleration Time 0.1 s RV Ejection Time 0.3 s RV AcT/ET 0.3 FINDINGS Left Ventricle Normal left ventricular size, systolic function and wall thickness, with no regional wall motion abnormalities. Left ventricular ejection fraction is estimated at 55-60 %. Rhythm precludes evaluation of diastolic function. Right Ventricle Normal right ventricular size and systolic function, RVSP 27 mmHg. Right Atrium Normal right atrial size. Right atrial pressure estimated at 8 mmHg. Left Atrium Normal left atrial size. Mitral Valve Mildly thickened mitral valve. No mitral valve stenosis. Trace mitral valve regurgitation. Aortic Valve Aortic valve not well visualized. No aortic valve stenosis. No aortic valve regurgitation. Tricuspid Valve Trace tricuspid valve regurgitation. Pulmonic Valve Structurally normal pulmonic valve. Trace pulmonary valve regurgitation. Pericardium No pericardial effusion. Aorta Normal size aortic root and proximal ascending aorta. CONCLUSIONS 1. Normal left ventricular size, systolic function and wall thickness, with no regional wall motion abnormalities. Left ventricular ejection fraction is estimated at 55-60 %. 2. Normal right ventricular size and systolic function. 3. No significant valvular abnormality. 4. Upper normal pulmonary artery pressure estimated at 27 mmHg. 5. Right atrial pressure estimated at 8 mmHg. 6. No prior similar studies to compare. Liv Crow MD (Electronically Signed) Final Date: 26 July 2020 13:21 S
--- NOTE | 2020-07-26 09:49 | PM.HP ---
Providers/Chief Complaint Primary Care Provider: Peter Dupont DO Chief Complaint: rapid heartrate History of Present Illness Alondra Wise is a 45 year old female who presented to the emergency department with complaints of feeling palpitations, weakness, and dizziness. She states she noticed this most, around 3:30 AM in the morning. She also felt clammy. She did not feel well yesterday. At home she thought she might have something wrong with her heart and did some Valsalva maneuvers which did not help. She did not check her heart rate. This morning she came to work, and was so fatigued that she came to the emergency department. A supraventricular tachycardic rhythm was noted and after adenosine was given it was evident this was atrial fibrillation with rapid ventricular rate. Patient was placed on Cardizem, and has had some issues with hypotension. Cardiology has been called and orders have been placed for the patient to go on amiodarone. Electrolytes are normal although the potassium is on the lower end. She has been given 1 dose of Lovenox. She reports she has not recently been ill. She has had no fevers or infection she knows of. No recent change in medication. Never had a history of atrial fibrillation. Has been vaccinated for Covid with last immunization over 3 weeks ago. Review of Systems General: Reports: 10 or more systems reviewed and unremarkable except in HPI and below Const: Reports: fatigue; Denies: fever(s) or chills Eyes: Denies: change in vision ENMT: Denies: throat pain Card: Reports: palpitations, irregular heart rhythm, swelling of feet/ankles, lightheadedness and dyspnea on exertion Resp: Reports: dyspnea; Denies: productive cough or non-productive cough GI: Denies: abdominal pain, nausea or vomiting : Denies: flank pain Musc: Denies: neck pain Skin/Breast: Denies: rash Neuro: Denies: headache(s) Psych: Denies: anxiety or depression Endo: Denies: polyuria Ab/Lymph: Denies: easy bruising All/Imm: Denies: urticaria Medications/Allergies Home Medications Medication Instructions Recorded Confirmed Last Taken Type cetirizine [Zyrtec] 10 mg PO DAILY 04/27/19 07/26/20 07/26/20 04:00 History fluticasone propionate [Flonase 2 spray INTRANASAL DAILY 04/27/19 07/26/20 07/26/20 04:00 History Allergy Relief] albuterol sulfate 90 mcg/actuation 1 - 2 puff INHALATION Q4H PRN 12/20/19 07/26/20 Unknown History aerosol inhaler Sudafed 1 tab PO PRN 04/20/20 07/26/20 04/19/20 History vedolizumab [Entyvio] 300 mg IV .Q 8 weeks #1 ea 06/23/20 07/26/20 06/19/20 Rx Allergies Allergy/AdvReac Type Severity Reaction Status Date / Time No Known Allergies Allergy Verified 07/26/20 08:00 PFSH Acute PFSH: Medical History (Updated 07/26/20 @ 09:54 by Rk Vo MD) Asthma Avascular necrosis Right shoulder Breast cancer, right breast (09/05/16) 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 S/P B/L mastectomy Ulcerative colitis Surgical History H/O bilateral mastectomy (12/09/16) Has had reconstructive surgery since then (8 different surgeries). H/O right breast biopsy (09/05/16) Diagnosis: ductal carcinoma in situ. Performed by Dr. Ruelas at [facility] in [place], [place]. Reoperation on 09/12/2016 due to positive margins. Final pathology: ductal carcinoma in situ. H/O umbilical hernia repair (~1993) History of endometrial ablation (03/19/12) Hysteroscopic hydrothermal endometrial ablation. Performed by Dr. Mishra at [facility] in [place], [place]. Hx of appendectomy (~07/2010) Performed by Dr. Ruelas at [facility] in [place], [place] Hx of rhinoplasty (~02/2006) Hx of tonsillectomy (~01/2002) Hx of tubal ligation (09/13/09) Tubal ligation (Jesse procedure) at time of section. Performed by Dr. Mishra at [facility] in [place], [place] S/P laparoscopic hysterectomy (03/30/13) TLH with BS. Performed by Dr. Mishra at [facility] in [place], [place] Status post primary low transverse section (02/03/07) Performed by Dr. Becerril at [facility] in [place], [place] Status post repeat low transverse section (09/13/09) With BTL. Performed by Dr. Mishra at [facility] in [place], [place] Family History Grandmother Colon cancer Paternal Thyroid disease Sister Thyroid disease Father Thyroid disease Grandfather Thyroid disease Mother Colon cancer Social History Smoking and tobacco status: never smoked Alcohol intake: current Alcohol intake frequency: few times a week Marital status: History of recent travel: No Vitals/I&O/Wt Last Vital Signs Temp 97.9 F 07/26/20 06:05 Pulse 116 H 07/26/20 06:45 Resp 13 07/26/20 06:45 BP 99/69 07/26/20 06:45 Pulse Ox 100 07/26/20 06:45 07/25/20 07/26/20 07/26/20 22:59 06:59 14:59 Intake Total 1000 / 1000 3.25 / 3.25 Balance 1000 / 1000 3.25 / 3.25 Weight last 48 hrs Weight 77.564 kg Physical Exam Narrative: EXAM NARRATIVE: General exam is a white female, reporting she feels weak, oxygen saturation 100% room air HEENT: Pupils equally round. Oropharynx clear. Neck supple no lymphadenopathy or thyromegaly Cardiovascular rapid rate, irregular, no murmur Lungs clear no wheezing or crackles Abdomen is soft, positive bowel sounds. No obvious organomegaly was deferred Extremities trace edema, pulses palpable. Cap refill brisk. No cyanosis or clubbing Skin no rash Neuro no obvious focal deficits. Data : 07/26/20 06:00 07/26/20 06:00 Other data: TSH is ordered and pending. Chest x-ray no infiltrate LFTs normal with exception of ALT which is 46. Initial troponin X with repeat of 16 BNP 125 Albumin 4.5 Calcium 9.0 Urinalysis negative A&P Assessment and plan (1) Atrial fibrillation with rapid ventricular response: Received Cardizem in the emergency department and despite IV fluids was significantly hypotensive. She has been converted to amiodarone per cardiology. Check echocardiogram Check magnesium Supplement potassium, low normal Cardiology consultation Goal of therapy is sinus rhythm. Full dose anticoagulation currently. We will decide if this is warranted long-term after more information is collected including structural heart assessment with echocardiogram Status: Acute Additional A&P Information Hypotension. Likely combination of atrial fibrillation and diltiazem. Hopefully can discontinue diltiazem as amiodarone takes a greater effect. Continue hydration currently. No evidence clinically or laboratory indicating heart failure/fluid overload History of asthma. No evidence of exacerbation. Albuterol as needed. History of ulcerative colitis. On Enetyvio Full code Lovenox for DVT prophylaxis Attestations Medical Necessity Statement*: Will need greater than 2 midnight stay for evaluation treatment of atrial fibrillation with rapid ventricular rate. Time Spent in Patient Care: Greater than 35 minutes At this point it is expected the patient will require greater than 2 midnights secondary to the associated hypotension with the atrial fibrillation with rapid ventricular response. 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
[2020-07-26] MEDS: potassium chloride ER 20 mEq Tablet 40 MEQ PO (10:05)
--- NOTE | 2020-07-26 10:09 | PC.NURSE ---
Pt was administered 150mg bolus of amiodarone over [address] Soni.
--- NOTE | 2020-07-26 10:14 | PM.CONSULT ---
Providers/Reason For Consult Consulting Physican/Specialty*: Dr. Crow, cardiology Reason for Consult*: Atrial fibrillation with rapid ventricle response Primary Care Provider: Peter Dupont DO History of Present Illness History of Present Illness Alondra Wise is a 45 year old female with past medical history of ulcerative colitis on Entyvio and family history of premature coronary artery disease. She has also has history of ductal carcinoma in situ status post bilateral mastectomy in November 2016 and reconstructive surgery since then. 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 She has been pretty busy at work over the last week. She felt tired thought that was secondary to that. Yesterday around noon she was not feeling too well while at work and went home. Around 3:30 in the morning she felt clammy and noticed her heart racing. She tried checking her heart rate but could not feel it consistently manually and came to the ER for further evaluation. The rhythm was thought to be supraventricular tachycardia and she received adenosine 6 mg followed by 12 mg and underlying atrial fibrillation was noticed. She was started on Cardizem drip which dropped her blood pressure. No fever, chills or UTI-like symptoms. She complains of mild nasal congestion and discharge yesterday evening. No recent changes in medications. No prior history of atrial fibrillation. No hospitalizations for ulcerative colitis no prior abdominal surgeries. She was vaccinated for Covid about 3 weeks back. Review of Systems General: Reports: 10 or more systems reviewed and unremarkable except in HPI and below Const: Reports: fatigue; Denies: fever(s) or chills Eyes: Denies: change in vision ENMT: Denies: throat pain Card: Reports: palpitations, irregular heart rhythm, swelling of feet/ankles, lightheadedness and dyspnea on exertion Resp: Reports: dyspnea; Denies: productive cough or non-productive cough GI: Denies: abdominal pain, nausea or vomiting : Denies: flank pain Musc: Denies: neck pain Skin/Breast: Denies: rash Neuro: Denies: headache(s) Psych: Denies: anxiety or depression Endo: Denies: polyuria Ab/Lymph: Denies: easy bruising All/Imm: Denies: urticaria Meds/Allergies Home Medications and Allergies Home Medications Medication Instructions Recorded Confirmed Last Taken Type cetirizine [Zyrtec] 10 mg PO DAILY 04/27/19 07/26/20 07/26/20 04:00 History fluticasone propionate [Flonase 2 spray INTRANASAL DAILY 04/27/19 07/26/20 07/26/20 04:00 History Allergy Relief] albuterol sulfate 90 mcg/actuation 1 - 2 puff INHALATION Q4H PRN 12/20/19 07/26/20 Unknown History aerosol inhaler Sudafed 1 tab PO PRN 04/20/20 07/26/20 04/19/20 History vedolizumab [Entyvio] 300 mg IV .Q 8 weeks #1 ea 06/23/20 07/26/20 06/19/20 Rx Allergies Allergy/AdvReac Type Severity Reaction Status Date / Time No Known Allergies Allergy Verified 07/26/20 08:00 Current Medications Current Medications Generic Name Dose Route Start Last Admin Trade Name Freq PRN Reason Stop Dose Admin Diltiazem HCl 125 mg/ Sodium 125 mls @ 0 mls/hr 07/26/20 06:15 07/26/20 07:21 Chloride IV 2.5 mg/hr .Q0M JAMES 2.5 mls/hr Infusion Per Protocol Sodium Chloride 1,000 mls @ 100 mls/hr 07/26/20 08:30 07/26/20 08:39 Sodium Chloride 0.9% IV 100 mls/hr .Q10H JAMES Administration Amiodarone HCl 900 mg/ 518 mls @ 17.267 mls/hr 07/26/20 09:00 07/26/20 09:16 Dextrose/ IV Miscellaneous IV 0.5 mg/min Supplies CONT JAMES 17.3 mls/hr Administration 0.5 MG/MIN PFSH Acute PFSH: Medical History Asthma Avascular necrosis Right shoulder Breast cancer, right breast (09/05/16) 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 S/P B/L mastectomy Ulcerative colitis Surgical History H/O bilateral mastectomy (12/09/16) Has had reconstructive surgery since then (8 different surgeries). H/O right breast biopsy (09/05/16) Diagnosis: ductal carcinoma in situ. Performed by Dr. Ruelas at [facility] in [place], [place]. Reoperation on 09/12/2016 due to positive margins. Final pathology: ductal carcinoma in situ. H/O umbilical hernia repair (~1993) History of endometrial ablation (03/19/12) Hysteroscopic hydrothermal endometrial ablation. Performed by Dr. Mishra at [facility] in [place], [place]. Hx of appendectomy (~07/2010) Performed by Dr. Ruelas at [facility] in [place], [place] Hx of rhinoplasty (~02/2006) Hx of tonsillectomy (~01/2002) Hx of tubal ligation (09/13/09) Tubal ligation (Jesse procedure) at time of section. Performed by Dr. Mishra at [facility] in [place], [place] S/P laparoscopic hysterectomy (03/30/13) TLH with BS. Performed by Dr. Mishra at [facility] in [place], [place] Status post primary low transverse section (02/03/07) Performed by Dr[address] Becerril at [facility] in [place], [place] Status post repeat low transverse section (09/13/09) With BTL. Performed by Dr. Mishra at [facility] in [place], [place] Family History Grandmother Colon cancer Paternal Thyroid disease Sister Thyroid disease Father Thyroid disease Grandfather Thyroid disease Mother Colon cancer Social History Smoking and tobacco status: never smoked Alcohol intake: current Alcohol intake frequency: few times a week Marital status: History of recent travel: No Vitals/I&O/Wt Last Vital Signs Temp 97.9 F 07/26/20 06:05 Pulse 116 H 07/26/20 06:45 Resp 13 07/26/20 06:45 BP 99/69 07/26/20 06:45 Pulse Ox 100 07/26/20 06:45 07/25/20 07/26/20 07/26/20 22:59 06:59 14:59 Intake Total 1000 / 1000 3.25 / 3.25 Balance 1000 / 1000 3.25 / 3.25 Weight last 48 hrs Weight 171 lb Physical Exam Narrative: EXAM NARRATIVE: GENERAL: Averagely built and averagely nourished in no acute distress HEENT: Extraocular movement intact. Pupils equal round reactive to light. No pallor or icterus. NECK: central trachea, No JVD. No carotid bruit. CARDIOVASCULAR SYSTEM: S1-S2 regular. No S3 or S4 present. No murmur rubs or gallops. RESPIRATORY SYSTEM: Chest clear to auscultation. No wheezes rhonchi or rubs heard. No use of accessory muscles. ABDOMEN: Soft, nontender and nondistended. Normal bowel sounds present. EXTREMITIES: No cyanosis or clubbing. No pitting edema. No signs of chronic venous insufficiency. PLANS EXAMINER: Patient is alert oriented ?3. No focal neurological deficits. Cranial nerves intact. SKIN: Normal turgor and temperature. No breakdown, rash or nail changes noted. PSYCH: Normal insight and judgment. Data Labs: Other Labs: ALT 46, baseline troponin of 10 at 120 minutes of 16. NT proBNP 125. U tox negative. TSH 2.02 magnesium 1.9. Other Data: Attestation for Other Data: I personally reviewed and interpreted the following: Other data: EKG on arrival showed atrial fibrillation with rapid ventricular response at [address]-T wave abnormality. Follow-up EKG with atrial fibrillation with rapid response at [address]-T wave abnormality. TTE CONCLUSIONS 1. Normal left ventricular size, systolic function and wall thickness, with no regional wall motion abnormalities. Left ventricular ejection fraction is estimated at 55-60 %. 2. Normal right ventricular size and systolic function. 3. No significant valvular abnormality. 4. Upper normal pulmonary artery pressure estimated at 27 mmHg. 5. Right atrial pressure estimated at 8 mmHg. 6. No prior similar studies to compare. CXR: No acute abnormality A&P Assessment and plan (1) Atrial fibrillation with rapid ventricular response: New onset atrial fibrillation with rapid ventricle response. Most likely time of onset late last night earlier this morning -Normal LV function without any significant valvular abnormality on echocardiogram. -Low normal potassium and magnesium. Normal TSH. -Normal chest x-ray. -She did not tolerate Cardizem because of low blood pressure requiring fluid boluses. Started on amiodarone gtt after bolus. -I will get her scheduled for cardioversion later today/early next morning. -Keep her n.p.o. for now. -Received Lovenox x1 dose earlier today. Status: Acute (2) Ulcerative colitis: Status: Acute Qualifiers: Ulcerative colitis location: unspecified ulcerative colitis location Digestive disease complication type: without complication Qualified Code(s): K51.90 - Ulcerative colitis, unspecified, without complications Additional A&P Information History of asthma Hypotension: Blood pressure normalized after fluid boluses and after stopping Cardizem. Thank you for allowing me to participate in patient's care. Please feel free to call with questions or concerns. Consult Attestations Time Spent in Patient Care: Greater than 35 minutes (>than 50% of time spent in counselling and/or direct pt care on unit). 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
[2020-07-26 10:18] LABS: Magnesium 1.9 mg/dL (1.7-2.3); Thyroid Stimulating Hormone 2.02 uIU/mL (0.27-4.20)
--- NOTE | 2020-07-26 12:09 | ECG_ITS ---
[facility] Test Date: 2020-07-26 Pat Name: Alondra Wise Department: Room: Gender: Female Line Pilot: : 1975 Requested By: Adarsh Frias Order Number: [id number] Reading MD: WILLIAM IRWIN Measurements Intervals [place] Rate: 110 P: [place]: QRS: 60 QRSD: 79 T: 45 QT: 292 QTc: 396 Interpretive Statements ATRIAL FIBRILLATION WITH RAPID VENTRICULAR RESPONSE ABNORMAL RHYTHM ECG Compared to ECG 07/26/2020 08:37:17 No significant changes Electronically Signed On 07-26-2020 20:26:16 CDT by WILLIAM IRWIN [email or web address]
[2020-07-26 13:04] LABS: Troponin 5 6HR 13.42 ng/L (0-10); Troponin 5 6HR Delta 3.42 ng/L (0-12)
[2020-07-26] MEDS: amiodarone 200 mg Tablet 400 MG PO (13:27)
--- NOTE | 2020-07-26 14:18 | ANES.PREANE2 ---
Pre-Anesthetic Assessment Pre-Anesthetic Assessment: Height/Weight: Height 1.65 m Weight 77.564 kg Temp Pulse Resp BP Pulse Ox 97.9 F 128 H 16 99/85 97 07/26/20 06:05 07/26/20 13:50 07/26/20 13:50 07/26/20 13:50 07/26/20 13:50 Preop Diagnosis: A fib w/ RVR Proposed Procedure: Cardioversion Familial anesthetic complications: None Was Beta Kasia taken within 24 hours: N/A Was Clonidine taken within 24 hours: N/A Last intake: Bunny-shaped sugar cookie at 0400 Social: Social History: No alcohol and No tobacco Exam: Pre-Anes Outpt Exam: alert, oriented x 3 and clear to auscultation bilaterally Additional Exam Findings (including area of procedure): A fib w/ RVR Airway: Cervical ROM: WNL MP: 2 Dentition: Other (2 missing) Additional comments: small mouth opening Pulmonary: Pulmonary: Asthma (mild) CV/HEM: CV/HEM: Afib (new onset) GI: Comments: ulcerative colitis. Recent steroid injection in shoulder Anesthetic Plan: ASA status: 3E Anesthesia: MAC Risk of > 500 ml blood loss (7ml/kg in children): No Meds/Allergies Current Medications: Current Medications Generic Name Dose Route Start Last Admin Trade Name Freq PRN Reason Stop Dose Admin Diltiazem HCl 125 mg/ Sodium 125 mls @ 0 mls/h r 07/26/20 06:15 07/26/20 10:18 Chloride IV 0 mg/hr .Q0M JAMES 0 mls/hr Infusion Per Protocol Sodium Chloride 1,000 mls @ 100 m ls/hr 07/26/20 08:30 07/26/20 08:39 Sodium Chloride 0.9% IV 100 mls/hr .Q10H JAMES Administration Amiodarone HCl 900 mg/ 518 mls @ 17.267 mls/hr 07/26/20 09:00 07/26/20 10:17 Dextrose/ IV Misce llaneous IV 1 mg/min Supplies CONT JAMES 34.5 mls/hr Infusion 0.5 MG/MIN PFSH Anesthesia PFSH: Medical History Asthma Avascular necrosis Right shoulder Breast cancer, right breast (09/05/16) 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 S/P B/L mastectomy Ulcerative colitis Surgical History H/O bilateral mastectomy (12/09/16) Has had reconstructive surgery since then (8 different surgeries). H/O right breast biopsy (09/05/16) Diagnosis: ductal carcinoma in situ. Performed by Dr. Ruelas at [facility] in [place], [place]. Reoperation on 09/12/2016 due to positive margins. Final pathology: ductal carcinoma in situ. H/O umbilical hernia repair (~1993) History of endometrial ablation (03/19/12) Hysteroscopic hydrothermal endometrial ablation. Performed by Dr. Mishra at [facility] in [place], [place]. Hx of appendectomy (~07/2010) Performed by Dr. Ruelas at [facility] in [place], [place] Hx of rhinoplasty (~02/2006) Hx of tonsillectomy (~01/2002) Hx of tubal ligation (09/13/09) Tubal ligation (Jesse procedure) at time of section. Performed by Dr. Mishra at [facility] in [place], [place] S/P laparoscopic hysterectomy (03/30/13) TLH with BS. Performed by Dr. Mishra at [facility] in [place], [place] Status post primary low transverse section (02/03/07) Performed by Dr. Becerril at [facility] in [place], [place] Status post repeat low transverse section (09/13/09) With BTL. Performed by Dr. Mishra at [facility] in [place], [place] Family History Grandmother Colon cancer Paternal Thyroid disease Sister Thyroid disease Father Thyroid disease Grandfather Thyroid disease Mother Colon cancer Social History Smoking and tobacco status: never smoked Alcohol intake: current Alcohol intake frequency: few times a week Marital status: History of recent travel: No Data Anesthesia CBC & Chem 7: 07/26/20 06:00 07/26/20 06:00 Other Labs: Laboratory Results - last 48 hr 07/26/20 07/26/20 07/26/20 06:00 06:00 06:00 WBC 9.6 RBC 4.17 Hgb 12.8 Hct 40.0 MCV 95.9 MCH 30.7 MCHC 32.0 RDW 12.7 Plt Count 283 MPV 9.9 Neut % (Auto) 62.8 Lymph % (Auto) 24.7 [place] % (Auto) 10.6 Eos % (Auto) 1.5 Baso % (Auto) 0.2 Neut # (Auto) 6.03 Lymph # (Auto) 2.4 [place] # (Auto) 1.0 H Eos # (Auto) 0.1 Baso # (Auto) 0.0 Nucleated RBC % (auto) 0 Nucleated RBCs # 0.0 PT 12.70 INR 0.93 APTT 27.5 D-Dimer Sodium 141 Potassium 3.5 Chloride 105 Carbon Dioxide 26 Anion Gap 13.5 BUN 14 Creatinine 0.5 GFR Calculation 132.8 H Glucose 95 Calculated Osmolality 292 Calcium 9.0 Magnesium Total Bilirubin 0.5 AST 30 ALT 46 H Alkaline Phosphatase 61 Troponin T Baseline Troponin T 120 Minute Delta Troponin T Troponin T Hi Sens 6Hr Troponin T Hi Sens 6Hr Delta NT-Pro-B Natriuret Pep 125 Total Protein 6.9 Albumin 4.5 Globulin 2.4 TSH Urine Color Urine Appearance Urine pH Ur Specific [place] Urine Protein Urine Glucose (UA) Urine Ketones Urine Blood Urine Nitrate Urine Bilirubin Prot Sulfosalicylic Acd Urine Urobilinogen Ur Leukocyte Esterase Urine Opiates Screen Ur Barbiturates Screen Ur Phencyclidine Scrn Ur Amphetamines Screen U Benzodiazepines Scrn Urine Cocaine Screen U Marijuana (THC) Screen 07/26/20 07/26/20 07/26/20 06:00 06:00 06:00 WBC RBC Hgb Hct MCV MCH MCHC RDW Plt Count MPV Neut % (Auto) Lymph % (Auto) [place] % (Auto) Eos % (Auto) Baso % (Auto) Neut # (Auto) Lymph # (Auto) [place] # (Auto) Eos # (Auto) Baso # (Auto) Nucleated RBC % (auto) Nucleated RBCs # PT INR APTT D-Dimer Sodium Potassium Chloride Carbon Dioxide Anion Gap BUN Creatinine GFR Calculation Glucose Calculated Osmolality Calcium Magnesium 1.9 Total Bilirubin AST ALT Alkaline Phosphatase Troponin T Baseline 10 Troponin T 120 Minute Delta Troponin T Troponin T Hi Sens 6Hr Troponin T Hi Sens 6Hr Delta NT-Pro-B Natriuret Pep Total Protein Albumin Globulin TSH 2.02 Cancelled Urine Color Urine Appearance Urine pH Ur Specific [place] Urine Protein Urine Glucose (UA) Urine Ketones Urine Blood Urine Nitrate Urine Bilirubin Prot Sulfosalicylic Acd Urine Urobilinogen Ur Leukocyte Esterase Urine Opiates Screen Ur Barbiturates Screen Ur Phencyclidine Scrn Ur Amphetamines Screen U Benzodiazepines Scrn Urine Cocaine Screen U Marijuana (THC) Screen 07/26/20 07/26/20 07/26/20 06:00 06:50 06:50 WBC RBC Hgb Hct MCV MCH MCHC RDW Plt Count MPV Neut % (Auto) Lymph % (Auto) [place] % (Auto) Eos % (Auto) Baso % (Auto) Neut # (Auto) Lymph # (Auto) [place] # (Auto) Eos # (Auto) Baso # (Auto) Nucleated RBC % (auto) Nucleated RBCs # PT INR APTT D-Dimer 0.60 H Sodium Potassium Chloride Carbon Dioxide Anion Gap BUN Creatinine GFR Calculation Glucose Calculated Osmolality Calcium Magnesium Total Bilirubin AST ALT Alkaline Phosphatase Troponin T Baseline Troponin T 120 Minute Delta Troponin T Troponin T Hi Sens 6Hr Troponin T Hi Sens 6Hr Delta NT-Pro-B Natriuret Pep Total Protein Albumin Globulin TSH Urine Color Straw Urine Appearance Clear Urine pH 8 H Ur Specific [place] 1.010 Urine Protein Neg Urine Glucose (UA) Norm Urine Ketones 1+ H Urine Blood Neg Urine Nitrate Negative Urine Bilirubin Neg Prot Sulfosalicylic Acd Negative Urine Urobilinogen Norm Ur Leukocyte Esterase Negative Urine Opiates Screen Negative Ur Barbiturates Screen Negative Ur Phencyclidine Scrn Negative Ur Amphetamines Screen Negative U Benzodiazepines Scrn Negative Urine Cocaine Screen Negative U Marijuana (THC) Screen Negative 07/26/20 07/26/20 08:04 12:30 WBC RBC Hgb Hct MCV MCH MCHC RDW Plt Count MPV Neut % (Auto) Lymph % (Auto) [place] % (Auto) Eos % (Auto) Baso % (Auto) Neut # (Auto) Lymph # (Auto) [place] # (Auto) Eos # (Auto) Baso # (Auto) Nucleated RBC % (auto) Nucleated RBCs # PT INR APTT D-Dimer Sodium Potassium Chloride Carbon Dioxide Anion Gap BUN Creatinine GFR Calculation Glucose Calculated Osmolality Calcium Magnesium Total Bilirubin AST ALT Alkaline Phosphatase Troponin T Baseline Troponin T 120 Minute 16.32 H Delta Troponin T 6.32 Troponin T Hi Sens 6Hr 13.42 H Troponin T Hi Sens 6Hr Delta 3.42 NT-Pro-B Natriuret Pep Total Protein Albumin Globulin TSH Urine Color Urine Appearance Urine pH Ur Specific [place] Urine Protein Urine Glucose (UA) Urine Ketones Urine Blood Urine Nitrate Urine Bilirubin Prot Sulfosalicylic Acd Urine Urobilinogen Ur Leukocyte Esterase Urine Opiates Screen Ur Barbiturates Screen Ur Phencyclidine Scrn Ur Amphetamines Screen U Benzodiazepines Scrn Urine Cocaine Screen U Marijuana (THC) Screen Cardiac Studies: No Data to Display
--- NOTE | 2020-07-26 14:44 | ECG_ITS ---
[facility] Test Date: 2020-07-26 Pat Name: Alondra Wise Department: Room: ICU12 Gender: Female Buyer Agent: : 1975 Requested By: Liv Crow Order Number: [id number] Reading MD: WILLIAM IRWIN Measurements Intervals [place] Rate: 74 P: 50 MI: 165 QRS: 56 QRSD: 67 T: 52 QT: 368 QTc: 408 Interpretive Statements SINUS RHYTHM Compared to ECG 07/26/2020 12:23:23 Atrial fibrillation no longer present Electronically Signed On 07-26-2020 20:18:37 CDT by WILLIAM IRWIN [id number]
--- NOTE | 2020-07-26 14:48 | ANE.PACU2 ---
Inpatient post-anesthesia follow up: Airway intact: Yes Vital signs: Temperature 97.9 F Pulse Rate [Monito r] 175 Pulse Rate 128 Respiratory Rate 16 Blood Pressure [Ri ght Arm] 125/84 Blood Pressure 99/85 Pulse Oximetry 97 Oxygen Delivery Me thod Room Air Oxygen Flow Rate Fraction of Inspir ed Oxygen Hydration adequate: Yes Nausea and vomiting: No Pain level: 1 Mental status: Baseline
--- NOTE | 2020-07-26 14:55 | PC.NURSE ---
1435- anesthesia et Dr. Crow at bedside, consent signed. Heart rhythm afib RVR with rate 130-150. 1441- propofol give per anesthesiologist. 1442- time out performed by this nurse, confirmed with Dr. Crow. 1443- synchronized cardioversion performed via doctor, at 150 [place]. Patient converted to SR with a rate of 85.
--- NOTE | 2020-07-26 18:02 | P.PCN_ITS ---
Procedure/Consent Time out: Time Out Performed: Yes Consent: Consent for Procedure: Consent obtained from patient, Risks & Benefits reviewed and Agrees to proceed with procedure Procedure Narrative: Cardioversion procedure note. Indication: Symptomatic new onset atrial flutter Anticoagulation: Lovenox Sedation: Propofol by anesthesia; refer to separate report for details. Procedure was explained to the patient in detail. Risks and benefits of the procedures were discussed. Informed consent was obtained. After time out was called patient received sedation. Pads were placed anteroposteriorly. She received 150 J of synchronized biphasic shock ?1 with spiritism of normal sinus rhythm. Patient tolerated the procedure well. Recovery: In unit Acute Procedures Epistaxis Control: Time out performed: Yes
[2020-07-26] MEDS: amiodarone 200 mg Tablet PO (18:46)
--- NOTE | 2020-07-26 20:26 | NUR.SHIFT ---
Agree with nursing assessment done by JIE Grace.
[2020-07-26] MEDS: acetaminophen 325 mg Tablet 650 MG PO (21:37)
[2020-07-27 00:37] VITALS: BP 92/62; PULSE 63; RESP 16; TEMP 36.5; O2SAT 98
[2020-07-27 02:00] VITALS: BP 78/50; PULSE 61; RESP 13; O2SAT 96
[2020-07-27 03:53] LABS: Basophils % 0.1 %; Eosinophils # 0.1 10^3/uL (0.0-0.8); Eosinophils % 0.8 %; Hematocrit 33.2 % (37.0-47.0); Hemoglobin 10.5 g/dL (11.5-15.3); Lymphocytes # 1.4 10^3/uL (0.8-4.8); Lymphocytes % 19.7 %; Mean Corpuscular HGB Conc 31.6 g/dL (30.0-36.0); Mean Corpuscular Hemoglobin 30.6 pg (28.0-34.0); Mean Corpuscular Volume 96.8 fL (81-99); Mean Platelet Volume 10.1 fL (7.4-10.4); Monocytes # 0.6 10^3/uL (0.2-0.9); Monocytes % 8.6 %; Neutrophils # 5.11 10^3/uL (1.8-7.7); Neutrophils % 70.5 %; Nucleated Red Blood Cells % 0 %; Platelet Count 192 10^3/cmm (130-400); Red Blood Count 3.43 10^6/uL (4.1-5.3); Red Cell Distribution Width 12.8 % (12.1-15.1); White Blood Count 7.3 10^3/uL (4.0-10.0)
[2020-07-27 04:00] VITALS: BP 88/55; PULSE 54; RESP 13; TEMP 36.7; O2SAT 96
[2020-07-27 04:11] LABS: Anion Gap 11.2 (5-19); Blood Urea Nitrogen 10 mg/dL (6-20); Calcium 8.5 mg/dL (8.5-10.5); Carbon Dioxide 24 mmol/L (22-29); Chloride 108 mmol/L (98-107); Glomerular Filtration Rate 107.6 mL/min (90-130); Glucose 99 mg/dL (65-115); Magnesium 1.8 mg/dL (1.7-2.3); Osmolality Calculated 287 mOsm/kg (285-295); Potassium 4.2 mmol/L (3.5-5.1); Sodium 139 mmol/L (136-145)
[2020-07-27 06:00] VITALS: BP 93/57; PULSE 59; PULSE 61; RESP 14; O2SAT 96
[2020-07-27] MEDS: acetaminophen 325 mg Tablet 650 MG PO (06:41)
[2020-07-27 08:00] VITALS: BP 106/66; PULSE 68; RESP 15; TEMP 37; O2SAT 98
[2020-07-27] MEDS: amiodarone 200 mg Tablet PO (08:21)
[2020-07-27] MEDS: enoxaparin 80 mg/0.8 mL Syringe SUBCUT (08:22)
[2020-07-27 10:00] VITALS: BP 107/82; PULSE 70; RESP 16; O2SAT 98
--- NOTE | 2020-07-27 10:46 | PC.CHAP ---
Pastoral Care Encounter/Spiritual Assessment Type of Contact [] Declined roading engineer visit [] Patient/Family/Request visit [] Outpatient visit [] Follow-up visit [] Physician referral [] Code/Alert [x] Routine visit [] Staff referral [] Actively dying [] Patient sleeping [] Family support [] [] Out of room [] Palliative care [] [] Receiving care in room [] Pre-surgical visit [] Trauma [] Long length of stay [x] ICU visit [] Other: Relational/Emotional Strength [] Patient feels connected with others/family/visitors/staff [] Distress [] Loneliness/isolation [] Abandonment Spirituality of Patient [] Person of Thais [] Attends Baptist of their Thais [] Believes in Prayer [] Reads Bible or Mandaen materials [] There are Spiritual issues to be addressed Foot Setter Interventions [x] Prayer [x] Active listening [x] Non-anxious presence [x] Spiritual/emotional support [] Crisis/trauma care [] Spiritual counseling [] Bereavement support [] Provided bereavement packet [] Provided Bible/devotional materials [] Provided toy/stuffed animal, coloring book to patient or family member [] Provided Communion [] Anointing/[place] [] Salvation [x] Completed spiritual assessment [] Other: Impact on Illness or Injury [] Angry [] Fearful [] Anxious [] Often cries [] Exhaustion [] Unable to work [] Unable to attend orthodoxy [] Unable to walk/stand [] Unable to read [] Unable to drive [] Unable to eat/drink [] Unable to sleep [] Unable to be with family [] Patient intubated [] Other: Summary hospital staff member... hearts rhythm has returned to normal.. feeling stronger... Time spent with patient 10 min
--- NOTE | 2020-07-27 11:21 | PM.DCS ---
Discharge Providers Date of Admission: 07/26/20 08:19 Date of Discharge: July 27, 2020 Attending Provider at Admission: Rk Vo MD Attending Provider at Discharge: Rk Vo MD Primary Care Provider: Peter Dupont DO Diagnoses at Discharge Discharge Diagnosis (1) Atrial fibrillation with rapid ventricular response: Status: Acute (2) Ulcerative colitis: Status: Acute Qualifiers: Digestive disease complication type: without complication Ulcerative colitis location: unspecified ulcerative colitis location Qualified Code(s): K51.90 - Ulcerative colitis, unspecified, without complications Reason for Visit Reason for Visit: rapid heartrate Hospital Course Hospital Course Alondra is a 45-year-old white female who presented to the hospital with dizziness, and palpitations. She was found to be in atrial fibrillation with rapid ventricular rate, with some hypotension. After failing Cardizem in the emergency department she was placed on IV fluids as well as amiodarone and transition to the ICU. Cardiology was consulted. Echocardiogram was performed demonstrating preserved EF and no major valvular dysfunctions. She was anticoagulated. Cardiology believed that cardioversion was warranted. This occurred on July 26 and was successful. She remained on amiodarone, anticoagulation following cardioversion in the following day with sinus rhythm, with a systolic blood pressure of 107. She was up and ambulatory and it was felt she could be discharged home. She will follow-up with cardiology in 2 weeks. She will continue amiodarone and Eliquis currently and further treatment, medication changes will be arranged by cardiology. Of note she also had a TSH while in the hospital which was normal. She had no evidence of electrolyte abnormalities. Physical Exam Narrative: EXAM NARRATIVE: General exam is no apparent distress Cardiovascular regular rate and rhythm without murmur Lungs clear Abdomen is soft, positive bowel sounds. Extremities no cyanosis clubbing or edema. Discharge Data Data Completed and Pending: Completed Studies During Hospitalization Category Date Time Status XR chest 1V mateo ble [id number] Stat Exams 07/26/20 06:08 Completed CV echo complete* [id number] Routine Ultrasound 07/26/20 09:46 Completed Pending at discharge Category Date Time Status CA echo doppler c omplete Stat Exams 07/26/20 08:42 Stop Req Labs from last 24 hours 07/27/20 07/27/20 07/26/20 03:40 03:40 12:30 WBC 7.3 RBC 3.43 L Hgb 10.5 L Hct 33.2 L MCV 96.8 MCH 30.6 MCHC 31.6 RDW 12.8 Plt Count 192 MPV 10.1 Neut % (Auto) 70.5 Lymph % (Auto) 19.7 [place] % (Auto) 8.6 Eos % (Auto) 0.8 Baso % (Auto) 0.1 Neut # (Auto) 5.11 Lymph # (Auto) 1.4 [place] # (Auto) 0.6 Eos # (Auto) 0.1 Baso # (Auto) 0.0 Nucleated RBC % (a uto) 0 Nucleated RBCs # 0.0 D-Dimer Sodium 139 Potassium 4.2 Chloride 108 H Carbon Dioxide 24 Anion Gap 11.2 BUN 10 Creatinine 0.6 GFR Calculation 107.6 Glucose 99 Calculated Osmolal ity 287 Calcium 8.5 Magnesium 1.8 Troponin T Hi Sens 6Hr 13.42 H Troponin T Hi Sens 6Hr Delta 3.42 07/26/20 06:00 WBC RBC Hgb Hct MCV MCH MCHC RDW Plt Count MPV Neut % (Auto) Lymph % (Auto) [place] % (Auto) Eos % (Auto) Baso % (Auto) Neut # (Auto) Lymph # (Auto) [place] # (Auto) Eos # (Auto) Baso # (Auto) Nucleated RBC % (a uto) Nucleated RBCs # D-Dimer 0.60 H Sodium Potassium Chloride Carbon Dioxide Anion Gap BUN Creatinine GFR Calculation Glucose Calculated Osmolal ity Calcium Magnesium Troponin T Hi Sens 6Hr Troponin T Hi Sens 6Hr Delta Vitals: Last Vital Signs Temp 98.6 F 07/27/20 08:00 Pulse 68 07/27/20 08:00 Resp 15 07/27/20 08:00 BP 106/66 07/27/20 08:00 Pulse Ox 98 07/27/20 08:00 Discharge Plan Discharge Patient Disposition: Home Condition: Stable Prescriptions: New Pacerone 200 mg Tablet 200 mg PO BID Qty: 35 RF: 0 Eliquis 5 mg tablet 5 mg PO BID Qty: 60 RF: 0 Continued albuterol sulfate 90 mcg/actuation HFA aerosol inhaler 1 - 2 puff INHALATION Q4H PRN (Reason: Shortness Of Breath) RF: 0 cetirizine [Zyrtec] 10 mg Tablet 10 mg PO DAILY RF: 0 fluticasone propionate [Flonase Allergy Relief] 50 mcg/actuation [place],Suspension 2 spray INTRANASAL DAILY RF: 0 Sudafed 1 tab PO PRN RF: 0 Entyvio 300 mg recon soln 300 mg IV .Q 8 weeks Qty: 1 RF: 12 Discharge Orders: Discharge Order (Routine); Ordered 07/27/20 Ordered By: Rk Vo Referrals: Peter Dupont DO [Primary Care Provider] - 4-7 days Liv Crow MD [Physician] - 2 weeks Discharge Diet: Regular Discharge Activity: Increase activity as tolerated Activity Restrictions/Additional Instructions: Keep follow-up with cardiology. Follow-up with your primary care provider. Discharge Attestations Time Spent in Discharge Care*: greater than 30 min Quality Metrics Clinical Quality Measures During this hospital stay, did patient experience: None Coding Level of Care Code Acute Chg FW DC note Diagnoses Atrial fibrillation with rapid ventricular response I48.91 Ulcerative colitis K51.90 Digestive disease complication type: without complication Ulcerative colitis location: unspecified ulcerative colitis location
== END 2020-07-27 12:02 | disposition home or self-care (01) | DRG 309 ==
LOC: ER 09:33 → ICU 13:36
PROVIDERS: Internal Medicine Cardiovascular Disease; Admitting Provider Internal Medicine; Emergency Provider Emergency Medicine; PCP Family Medicine; Visit Provider Internal Medicine
DX: I48.91 Unspecified atrial fibrillation (principal); M87.811 Other osteonecrosis, right shoulder; K51.90 Ulcerative colitis, unspecified, without complications; I95.9 Hypotension, unspecified; J45.909 Unspecified asthma, uncomplicated; Z85.3 Personal history of malignant neoplasm of breast; Z90.13 Acquired absence of bilateral breasts and nipples; Z79.51 Long term (current) use of inhaled steroids; Z82.49 Family history of ischemic heart disease and other diseases of the circulatory system
CPT/HCPCS: 36415; 71045; 80048; 80053; 80306; 81003; 83735; 83880; 84443; 84484; 85025; 85378; 85610; 85730; 93005; 93306; 94762; 96365; 96366; 96367; 96372; 96375; 99285; J0153; J0282; J1650; J2405; J2704; J3490; J7030; J7060

== ENCOUNTER → 2020-08-22 12:06 | Day surgery (SDC) | payer OTHER, SELFPAY ==
[2020-08-22] MEDS: vedolizumab 300 MG in sodium chloride 0.9% 250 ML 500 MG IV (13:02)
[2020-08-22 13:03] VITALS: BP 117/75; PULSE 85; RESP 18; TEMP 36.6; O2SAT 100
== END ==
PROVIDERS: PCP Family Medicine; Visit Provider Internal Medicine
DX: K51.90 Ulcerative colitis, unspecified, without complications (principal)
CPT/HCPCS: 96365; J3380; J7050

== ENCOUNTER 2020-09-29 12:22 | Outpatient (CLI) | payer OTHER, SELFPAY ==
[2020-09-29 12:31] VITALS: BMI 28.3
--- NOTE | 2020-09-29 12:31 | ECG_ITS ---
[facility] Test Date: 2020-09-29 Pat Name: Alondra Wise Department: Room: Gender: Female Retirement Plan Specialist: : 1975 Requested By: Liv Crow Order Number: [id number] Riya MD: Liv Crow M.D. Interpretive Statements NAME OF STUDY: TREADMILL STRESS ECHOCARDIOGRAM INDICATION: Atrial fibrillation, therapy with antiarrhythmics Baseline blood pressure of 114/74 mm Hg, heart rate 70 beats per minute and oxygen saturation of 99%. EKG showed normal sinus rhythm, normal axis with normal ST-Ts. The patient exercised for 8 minutes 36 seconds on a standard Adirel protocol. Patient attained a maximum heart rate of 158 beats per minute(90% of the maximum predicted heart rate) with a blood pressure at the peak exercise of 132/72 mm Hg, oxygen saturation 97%. The EKG at the peak exercise revealed sinus tachycardia with no significant ST-T wave changes. Patient did not have any chest pain or any significant arrhythmis with the exercise. The study was terminated due to attainment of target heart rate and exertional fatigue. During the recovery phase, there were no new changes. Blood pressure at the end of the recovery phase was 94/50 mm Hg with a heart rate of 89 beats per minute and oxygen saturation 98%. CONCLUSION: 1. Normal EKG response to treadmill exercise. 2. No exercise-induced chest pain or cardiac arrhythmia. 3. Excellent exercise tolerance, attained a maximum of 10.2 METs. Maximum VO2 35.7 mL/kg/min. 4. Baseline normal blood pressure with normal response to exercise. 5. Echo portion of the study will be documented separately. Electronically Signed On 09-29-2020 16:18:54 CDT by Liv Crow M.D. [id number]
--- NOTE | 2020-09-29 12:32 | USCV_ITS ---
Alondra Wise Age: 45 Gender: F : 1975 Exam Date: 09/29/2020 12:41 Ordering Phys: Liv Crow MD ([email or web address]) Technologist: RICH Exam Location: [facility] [place] Indication: Atrial fibrillation, Flecainide therapy Rhythm: Sinus Patient History: Cardiac Medications: Medications in past 24 hours: Contrast: Stress Results Protocol: Adriel Total dose(mL): Exercise Duration (min:sec): 8:36 METS: 10.2 Resting HR: 76 Resting BP: 114 / 74 Peak HR: 158 Peak BP: 151 / 75 Max Predicted HR: 174 91 % Max Predicted HR Target HR: 148 Double Product: 17974 Stress Summary: The patient's target heart rate was achieved BP Response: Normal Reason for Termination: Maximal effort/unable to continue Cardiac Symptoms: None ECG Analysis Resting ECG: Stress ECG: Arrhythmia: MEASUREMENTS (Male/Female) Normal Values FINDINGS PROCEDURE: At the baseline, the patient's blood pressure was 114/74 mmHg with a heart rate of 76 bpm. The patient exercised for 8 minutes and 36 seconds on a standard Adriel protocol. Patient attained a maximum heart rate of 158 bpm beats per minute( 91 % of the maximum predicted heart rate) with a blood pressure at the peak exercise of 151/75 mm Hg. During the recovery phase, there were no new changes. Echocardiographic pictures were taken at the baseline, immediately following the peak exercise and during the recovery phase. Baseline echocardiogram: Normal left ventricular size and systolic function with ejection fraction estimated at 60%. No regional wall motion abnormalities. Normal right ventricle size and systolic function. Normal left and right atrial size. No pericardial effusion. Peak exercise echocardiogram: Normal augmentation of left ventricular systolic function with exercise. No new regional wall motion abnormalities. Recovery echocardiogram: Left ventricular systolic function normalizes. No regional wall motion abnormalities. CONCLUSIONS 1. This is a treadmill stress echocardiogram. 2. Excellent exercise tolerance, attained a maximum of 10.2 METs. Double product of 23,859 3. Normal EKG response to treadmill exercise. 4. Normal blood pressure and heart rate response to exercise. 5. Normal echocardiographic response to exercise. Liv Crow MD (Electronically Signed) Final Date: 03 October 2020 10:28 S
[2020-09-29 13:14] VITALS: BP 94/50; PULSE 89
== END 2020-09-29 12:23 | disposition home or self-care (01) ==
LOC: CDL 12:23
PROVIDERS: PCP Family Medicine; Visit Provider Internal Medicine Cardiovascular Disease
DX: I48.91 Unspecified atrial fibrillation (principal)
CPT/HCPCS: 93017; 93350

== ENCOUNTER → 2021-01-02 08:14 | Day surgery (SDC) | payer OTHER, SELFPAY ==
[2021-01-02] MEDS: vedolizumab 300 MG in sodium chloride 0.9% 250 ML 500 MG IV (10:41)
[2021-01-02 10:47] VITALS: BP 117/71; PULSE 64; RESP 18; TEMP 36.1; O2SAT 100; BMI 28.3
== END ==
PROVIDERS: PCP Family Medicine; Visit Provider Internal Medicine
DX: K51.90 Ulcerative colitis, unspecified, without complications (principal)
CPT/HCPCS: 96365; J3380; J7050

== ENCOUNTER → 2021-03-08 10:02 | Outpatient (BNVA) | payer OTHER, SELFPAY | PROVIDERS: PCP Family Medicine; Referring Provider Family Medicine; Visit Provider Internal Medicine | DX: E05.90 Thyrotoxicosis, unspecified without thyrotoxic crisis or storm (principal); I48.91 Unspecified atrial fibrillation | CPT/HCPCS: 99204 ==

== ENCOUNTER 2021-03-08 15:36 | Outpatient (CLI) | payer OTHER, SELFPAY ==
[2021-03-08 16:51] LABS: Thyroid Stimulating Hormone 0.13 uIU/mL (0.27-4.20)
[2021-03-09 14:38] LABS: Thyroglobulin AB 2 IU/mL (< or = 1); Thyroid Peroxidase Antobodies 25 IU/mL (<9)
[2021-03-14 16:08] LABS: TSH Receptor Binding Antibody 1.45 IU/L (< OR = 2.00)
== END 2021-03-08 15:37 | disposition home or self-care (01) ==
PROVIDERS: PCP Family Medicine; Visit Provider Internal Medicine
DX: E05.90 Thyrotoxicosis, unspecified without thyrotoxic crisis or storm (principal); I48.91 Unspecified atrial fibrillation
CPT/HCPCS: 36415; 83516; 84443; 86376; 86800

== ENCOUNTER 2021-03-21 09:28 | Outpatient (CLI) | payer OTHER, SELFPAY ==
[2021-03-30 10:45] LABS: Basophils % 0.2 %; Eosinophils # 0.1 10^3/uL (0.0-0.8); Eosinophils % 0.8 %; Hematocrit 35.3 % (37.0-47.0); Hemoglobin 11.8 g/dL (11.5-15.3); Lymphocytes # 2.5 10^3/uL (0.8-4.8); Lymphocytes % 21.1 %; Mean Corpuscular HGB Conc 33.4 g/dL (30.0-36.0); Mean Corpuscular Hemoglobin 30.1 pg (28.0-34.0); Mean Corpuscular Volume 90.1 fl (81-99); Mean Platelet Volume 10.2 fL (7.4-10.4); Monocytes # 0.9 10^3/uL (0.2-0.9); Monocytes % 7.6 %; Neutrophils # 8.12 10^3/uL (1.8-7.7); Nucleated Red Blood Cells % 0 %; Platelet Count 300 10^3/cmm (130-400); Red Blood Count 3.92 10^6/uL (4.1-5.3); Red Cell Distribution Width 12.8 % (12.1-15.1); White Blood Count 11.6 10^3/uL (4.0-10.0)
[2021-04-02 12:08] LABS: Erythrocyte Sedimentation Rate 2 mm/hr (0-15)
== END 2021-03-21 09:29 | disposition home or self-care (01) ==
PROVIDERS: PCP Family Medicine; Visit Provider Internal Medicine
DX: E05.90 Thyrotoxicosis, unspecified without thyrotoxic crisis or storm (principal)
CPT/HCPCS: 36415; 84439

== ENCOUNTER → 2021-03-23 10:43 | Day surgery (SDC) | payer OTHER, SELFPAY ==
[2021-03-23 13:05] VITALS: BP 129/80; PULSE 77; RESP 18; TEMP 36.2; O2SAT 98
[2021-03-23] MEDS: vedolizumab 300 MG in sodium chloride 0.9% 250 ML 255 MG IV (13:06)
== END ==
PROVIDERS: PCP Family Medicine; Visit Provider Internal Medicine
DX: K51.90 Ulcerative colitis, unspecified, without complications (principal)
CPT/HCPCS: 96365; J3380; J7050

== ENCOUNTER 2021-03-30 10:08 | Outpatient (CLI) | payer OTHER, SELFPAY ==
[2021-03-30 11:13] LABS: Free T4 Free Thyroxine 0.93 ng/dL (0.82-1.77); Thyroid Stimulating Hormone 3.25 uIU/mL (0.27-4.20)
[2021-03-31 08:42] LABS: T3 Total 84 ng/dL (76-181)
== END 2021-03-30 10:09 | disposition home or self-care (01) ==
PROVIDERS: Internal Medicine; PCP Family Medicine; Visit Provider Clinical Nurse Specialist Adult Health
DX: L03.90 Cellulitis, unspecified (principal)
CPT/HCPCS: 36415; 84439; 84443; 84480; 85025; 85651; 86140

== ENCOUNTER 2021-04-17 10:09 | Outpatient (CLI) | payer OTHER, SELFPAY ==
--- NOTE | 2021-04-17 10:23 | NM_ITS ---
WS: [id number] NUCLEAR MEDICINE 24 HOUR I-123 THYROID UPTAKE INDICATION: Goiter TECHNIQUE: I-123 24 HOUR THYROID UPTAKE WITH PLANAR IMAGING. 108 UCI TRAN 123 COMPARISON: Ultrasound and November 19, 2016 FINDINGS: Normal homogeneous thyroid uptake in both the right and left thyroid lobes. No asymmetric f oci of uptake. No photopenic defects. NORMAL 24H THRYOID UPTAKE 8-35% NM/NM thyroid uptake multi [id number] IMPRESSION: 24-hour thyroid uptake 20.76% within normal limits.
[2021-04-17 11:18] LABS: Free T4 Free Thyroxine 1.06 ng/dL (0.82-1.77); Thyroid Stimulating Hormone 1.84 uIU/mL (0.27-4.20)
[2021-04-18 08:03] LABS: T3 Total 123 ng/dL (76-181)
== END 2021-04-17 10:10 | disposition home or self-care (01) ==
PROVIDERS: PCP Family Medicine; Visit Provider Internal Medicine
DX: E05.90 Thyrotoxicosis, unspecified without thyrotoxic crisis or storm (principal)
CPT/HCPCS: 78014; 84439; 84443; 84480; A9516

== ENCOUNTER → 2021-05-18 09:12 | Day surgery (SDC) | payer OTHER, SELFPAY ==
[2021-05-18] MEDS: vedolizumab 300 MG in sodium chloride 0.9% 250 ML 250 MG IV (09:32)
[2021-05-18 09:56] VITALS: BP 115/69; PULSE 79; RESP 18; TEMP 36.3; O2SAT 100
== END ==
PROVIDERS: PCP Family Medicine; Visit Provider Internal Medicine
DX: K51.90 Ulcerative colitis, unspecified, without complications (principal)
CPT/HCPCS: 96365; J3380; J7050

== ENCOUNTER → 2021-07-17 09:16 | Day surgery (SDC) | payer OTHER, SELFPAY ==
[2021-07-17 09:35] VITALS: BP 121/75; PULSE 87; RESP 18; TEMP 36.3; O2SAT 96
== END ==
PROVIDERS: PCP Family Medicine; Visit Provider Internal Medicine
DX: K51.90 Ulcerative colitis, unspecified, without complications (principal)
CPT/HCPCS: 96365; J7050

== ENCOUNTER → 2021-10-09 09:55 | Day surgery (SDC) | payer OTHER, SELFPAY ==
[2021-10-09 10:16] VITALS: BP 118/68; PULSE 68; RESP 18; TEMP 36.2; O2SAT 99
== END ==
LOC: GILAB 09:57
PROVIDERS: PCP Family Medicine; Visit Provider Internal Medicine
DX: K51.90 Ulcerative colitis, unspecified, without complications (principal)
CPT/HCPCS: 96365

== ENCOUNTER → 2021-12-14 08:36 | Day surgery (SDC) | payer OTHER, SELFPAY ==
[2021-12-14 08:57] VITALS: BP 102/73; PULSE 75; RESP 18; TEMP 36.1; O2SAT 99
== END ==
PROVIDERS: PCP Family Medicine; Visit Provider Internal Medicine
DX: K51.90 Ulcerative colitis, unspecified, without complications (principal)
CPT/HCPCS: 96365; J7050

== ENCOUNTER 2022-01-31 10:17 | Outpatient (CLI) | payer OTHER, SELFPAY ==
--- NOTE | 2022-01-31 10:33 | XR_ITS ---
WS: [id number] Left foot, 3 views, 01/31/2022 Clinical Data: M79.672 - Pain in left foot Comparison: None. Findings: No fractures or dislocations are seen. No bone destruction or erosion is noted. The joint spaces and soft tissues are normal. XR/XR foot LT min 3V* [id number] Impression: Negative left foot.
== END 2022-01-31 10:18 | disposition home or self-care (01) ==
LOC: RAD 10:20
PROVIDERS: PCP Family Medicine; Visit Provider Podiatrist Foot & Ankle Surgery
DX: M79.672 Pain in left foot (principal)
CPT/HCPCS: 73630

== ENCOUNTER → 2022-02-08 10:51 | Day surgery (SDC) | payer OTHER, SELFPAY ==
[2022-02-08 11:06] VITALS: BP 108/68; PULSE 76; RESP 18; TEMP 36; O2SAT 99
[2022-02-08] MEDS: ENTYVIO 1 EACH XX (11:08)
== END ==
PROVIDERS: PCP Family Medicine; Visit Provider Internal Medicine
DX: K51.90 Ulcerative colitis, unspecified, without complications (principal)
CPT/HCPCS: 96365

== ENCOUNTER → 2022-02-14 14:25 | Outpatient (BNVA) | payer OTHER, SELFPAY | PROVIDERS: PCP Family Medicine; Visit Provider Family Medicine | DX: E06.3 Autoimmune thyroiditis (principal) | CPT/HCPCS: 84436; 84443; 84481; 84482 ==

== ENCOUNTER 2022-04-02 07:41 | Outpatient (CLI) | payer SELFPAY ==
[2022-04-02 08:18] LABS: HF Add Manual Diff No
[2022-04-02 08:29] LABS: Basophils % 0.1 %; Eosinophils # 0.2 10^3/uL (0.0-0.8); Eosinophils % 2.6 %; Hematocrit 35.3 % (37.0-47.0); Hemoglobin 11.7 g/dL (11.5-15.3); Lymphocytes # 1.8 10^3/uL (0.8-4.8); Lymphocytes % 23.7 %; Mean Corpuscular HGB Conc 33.1 g/dL (30.0-36.0); Mean Corpuscular Hemoglobin 30.5 pg (28.0-34.0); Mean Corpuscular Volume 92.2 fl (81-99); Mean Platelet Volume 10.1 fL (7.4-10.4); Monocytes # 0.7 10^3/uL (0.2-0.9); Monocytes % 9.5 %; Neutrophils # 4.84 10^3/uL (1.8-7.7); Nucleated Red Blood Cells % 0 %; Platelet Count 288 10^3/cmm (130-400); Red Blood Count 3.83 10^6/uL (4.1-5.3); Red Cell Distribution Width 12.4 % (12.1-15.1); White Blood Count 7.6 10^3/uL (4.0-10.0)
[2022-04-02 08:46] LABS: Alanine Aminotransferase 72 U/L (0-33); Albumin Level 4.1 g/dL (3.5-5.2); Alkaline Phosphatase 83 U/L (35-105); Anion Gap 13.2 (5-19); Aspartate Amino Transferase 48 U/L (0-32); Blood Urea Nitrogen 16 mg/dL (6-20); Calcium 8.8 mg/dL (8.5-10.5); Carbon Dioxide 27 mmol/L (22-29); Chloride 106 mmol/L (98-107); Chol HDL Ratio 2.67 mg/dL (0.0-4.40); Cholesterol 163 mg/dL (0-200); Globulin 2.6 g/dL (1.3-4.6); Glomerular Filtration Rate 132.2 mL/min (90-130); Glucose 93 mg/dL (65-115); HDL Cholesterol 61 mg/dL (60-100); LDL Cholesterol Calculated 94 mg/dL (50-129); LDL HDL Ratio 1.54 RATIO (0.00-3.22); Osmolality Calculated 295 mOsm/kg (285-295); Potassium 4.2 mmol/L (3.5-5.1); Sodium 142 mmol/L (136-145); Thyroid Stimulating Hormone 1.87 uIU/mL (0.27-4.20); Total Bilirubin 0.3 mg/dL (0.15-1.2); Total Protein 6.7 g/dL (6.6-8.7); Triglycerides 42 mg/dL (0-150)
[2022-04-02 09:11] LABS: Estmated Average Glucose 88; Hemoglobin A1C 4.7 % (4.0-6.0)
== END 2022-04-02 07:42 | disposition home or self-care (01) ==
PROVIDERS: PCP Family Medicine; Visit Provider Dermatology
DX: Z01.89 Encounter for other specified special examinations (principal)

== ENCOUNTER → 2022-04-17 11:42 | Day surgery (SDC) | payer OTHER, SELFPAY ==
[2022-04-17 12:16] VITALS: BP 119/65; PULSE 78; RESP 18; TEMP 35.7; O2SAT 99
== END ==
PROVIDERS: PCP Family Medicine; Visit Provider Internal Medicine
DX: K51.90 Ulcerative colitis, unspecified, without complications (principal)
CPT/HCPCS: J7050

== ENCOUNTER 2022-06-19 11:20 | Emergency (ER) | payer OTHER, SELFPAY ==
[2022-06-19 11:39] VITALS: BP 118/82; PULSE 77; TEMP 36.6; O2SAT 99; BMI 29.1
--- NOTE | 2022-06-19 11:39 | XRR_ITS ---
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 Views: 2 or more views. COMPARISON: CR XR shoulder LT min 2V* [id number] 05/22/2020 6:33 PM FINDINGS: Bones/joints: Normal. Soft tissues: Normal. XR/XR shoulder LT min 2V* [id number] IMPRESSION: No acute findings.
--- NOTE | 2022-06-19 11:46 | W.ED.UPPEXIN ---
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 Patient states she has had previous injuries to the left shoulder including avascular necrosis. 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 MD complaint: injury to: left and shoulder Onset (ago): hour(s) Other Extremity Injury: Left: shoulder Other injuries: none Place: work Severity: moderate Relieving factors: immobilization Exacerbating factors: movement of extremity Associated symptoms: Reports no associated symptoms; Denies neck pain Review of Systems Card: Denies: chest pain Resp: Denies: dyspnea Musc: Reports: joint pain (L shoulder); Denies: neck pain, back pain, extremity pain, extremity swelling, joint swelling, joint redness or joint warmth Neuro: Denies: numbness in extremities or sensory changes PFS ED PFSH: Medical History Asthma Avascular necrosis Right shoulder Breast cancer, right breast (09/05/16) 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 S/P B/L mastectomy Ulcerative colitis Surgical History H/O bilateral mastectomy (12/09/16) Has had reconstructive surgery since then (8 different surgeries). H/O right breast biopsy (09/05/16) Diagnosis: ductal carcinoma in situ. Performed by Dr. Ruelas at [facility] [facility] in [place], [place]. Reoperation on 09/12/2016 due to positive margins. Final pathology: ductal carcinoma in situ. H/O umbilical hernia repair (~1993) History of endometrial ablation (03/19/12) Hysteroscopic hydrothermal endometrial ablation. Performed by Dr. Mishra at [facility] [place] in [place], [place]. Hx of appendectomy (~07/2010) Performed by Dr. Ruelas at [facility] [place] in [place], [place] Hx of rhinoplasty (~02/2006) Hx of tonsillectomy (~01/2002) Hx of tubal ligation (09/13/09) Tubal ligation (Jesse procedure) at time of section. Performed by Dr. Mishra at [facility] in [place], [place] S/P laparoscopic hysterectomy (03/30/13) TLH with BS. Performed by Dr. Mishra at [facility] [place] in [place], [place] Status post primary low transverse section (02/03/07) Performed by Dr. Becerril at [facility] [place] in [place], [place] Status post repeat low transverse section (09/13/09) With BTL. Performed by Dr. Mishra at [facility] [place] in [place], [place] Family History Grandmother Colon cancer Paternal Thyroid disease Sister Thyroid disease Father Thyroid disease Grandfather Thyroid disease Mother Colon cancer Social History Smoking and tobacco status: former smoker Alcohol intake: current Alcohol intake frequency: few times a week Marital status: Physical Exam Const: COMMON NORMALS: no acute distress, average body habitus, patient oriented x3, no limitations, healthy appearing, alert and well nourished Extremity: COMMON NORMALS: capillary refill normal, no joint enlargement and no clubbing, cyanosis or edema GENERAL: Yes normal exam except as noted LEFT UPPER EXTREMITY: Yes shoulder joint Left shoulder joint: Yes inspection (normal generalized inspection ), Yes palpation (TTP posterior shoulder ), Yes ROM (full but very hesitant to range of motion secondary to pain) and Yes neurovascular exam (normal) Neuro: COMMON NORMALS: patient oriented x3, moves all extremities, no focal motor deficits and no sensory deficits noted SENSORIUM/ORIENTATION: Yes alert Course Vital Signs: Vital signs: Vital Signs Temperature 98 F 06/19/22 11:39 Pulse Rate 77 06/19/22 11:39 Blood Pressure 118/82 06/19/22 11:39 Pulse Oximetry 99 06/19/22 11:39 Oxygen Delivery Me thod 06/19/22 11:39 MDM - Extremity Injury (Upper) Medical Decision Making XR negative. Will sling for comfort. Patient requested to go back to work. She will be recommended to not use affected extremity. Recommend to follow-up with Worker's Comp. Lab Data Radiology Impressions Shoulder X-Ray 06/19/22 11:39 IMPRESSION: No acute findings. Discharge Plan Discharge Patient Disposition: Home Clinical Impression: Injury of left shoulder Qualifiers: Encounter type: initial encounter Qualified Code(s): S49.92XA - Unspecified injury of left shoulder and upper arm, initial encounter Condition: Stable Prescriptions: No Action aspirin 81 mg tablet,delayed release (DR/EC) 81 mg PO DAILY albuterol sulfate 90 mcg/actuation HFA aerosol inhaler 1 - 2 puff INHALATION Q4H PRN (Reason: Shortness Of Breath) Qty: 6.7 0RF Entyvio 300 mg recon soln 300 mg IV .Q 8 weeks Qty: 1 12RF cetirizine [Zyrtec] 10 mg Tablet 10 mg PO DAILY fluticasone propionate [Flonase Allergy Relief] 50 mcg/actuation [place],Suspension 2 spray INTRANASAL DAILY Sudafed 1 tab PO PRN Discharge Orders: Discharge ED (Routine); Ordered 06/19/22 Ordered By: Korin Collado Referrals: Peter Dupont DO [Primary Care Provider] - Activity Restrictions/Additional Instructions: As we discussed please follow-up with Worker's Comp. as directed. They may decide on conservative therapies, physical therapy, and/or MRI imaging for the shoulder injury. You may stay in sling over the next 48 to 72 hours then begin gentle range of motion. You may apply ice to the shoulder joint for the next 2 days and then alternate between ice/heat. I hope you begin to feel better soon. 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
== END 2022-06-19 12:30 | disposition home or self-care (01) ==
PROVIDERS: Emergency Provider Physician Assistant; PCP Family Medicine
DX: S49.92XA Unspecified injury of left shoulder and upper arm, initial encounter (principal); Z79.82 Long term (current) use of aspirin; Z87.891 Personal history of nicotine dependence; Z85.3 Personal history of malignant neoplasm of breast; X50.9XXA Other and unspecified overexertion or strenuous movements or postures, initial encounter; Y93.F2 Activity, caregiving, lifting; Y92.239 Unspecified place in hospital as the place of occurrence of the external cause; Y99.0 Civilian activity done for income or pay
CPT/HCPCS: 73030; 99283

== ENCOUNTER 2022-11-01 05:56 | Day surgery (SDC) | payer OTHER, SELFPAY ==
[2022-10-28 09:50] VITALS: BMI 28.6
[2022-11-01 06:09] VITALS: BP 110/76; PULSE 78; RESP 16; TEMP 36.2; O2SAT 98
[2022-11-01] MEDS: sodium chloride 0.9% 1,000 ML 30 ML IV (06:16)
--- NOTE | 2022-11-01 06:47 | W.PM.OPSUD ---
Surgery/Procedure H&P Update DATE OF PROCEDURE: November 01, 2022 DATE H&P PERFORMED: 10/29/22 H&P UPDATE INFORMATION: I have reviewed H&P completed within last 30 days, I have examined patient prior to procedure and No changes to prior documentation PLANNED PROCEDURE: Operation Date: 11/01/22 07:00 Proposed Procedures p [id number] egd [id number] colon K21.9 ,K51.90,Z12.11(Not Applicable) - DO ish Mckeon Colonoscopy(Not Applicable) - Steve Phillip DO
[2022-11-01 07:45] VITALS: BP 105/71; PULSE 81; RESP 16; TEMP 36.1; O2SAT 100
[2022-11-01 07:52] VITALS: BP 108/79; PULSE 78; RESP 16; O2SAT 100
--- NOTE | 2022-11-01 08:05 | ANE.PACU2 ---
Inpatient post-anesthesia follow up: Airway intact: Yes Vital signs: Temperature 97.0 F Pulse Rate 71 Respiratory Rate 18 Blood Pressure 99/68 Pulse Oximetry 96 Oxygen Delivery Me thod Room Air Oxygen Flow Rate Fraction of Inspir ed Oxygen Hydration adequate: Yes Nausea and vomiting: Yes Pain level: 1 Mental status: Baseline
[2022-11-01 08:08] VITALS: BP 99/68; PULSE 71; RESP 18; O2SAT 96
--- NOTE | 2022-11-01 09:03 | PC.NURSE ---
Patient IV left in place for post procedure infusion. To be removed by Laura Cardoso RN upon completion of infusion.
== END 2022-11-01 08:21 | disposition home or self-care (01) ==
PROVIDERS: PCP Family Medicine; Visit Provider Surgery
PROC: 0DJ08ZZ Inspection of Upper Intestinal Tract, Via Natural or Artificial Opening Endoscopic (ICD-10-PCS; CPT 43235; principal; 2022-11-01 07:00)
PROC: 0DJD8ZZ Inspection of Lower Intestinal Tract, Via Natural or Artificial Opening Endoscopic (ICD-10-PCS; CPT 45378; 2022-11-01 07:00)
DX: K92.1 Melena (principal); K21.9 Gastro-esophageal reflux disease without esophagitis; Z80.0 Family history of malignant neoplasm of digestive organs; K64.8 Other hemorrhoids; K51.50 Left sided colitis without complications; K51.20 Ulcerative (chronic) proctitis without complications; K29.50 Unspecified chronic gastritis without bleeding; D12.4 Benign neoplasm of descending colon
CPT/HCPCS: 43239; 45380; 45385; 82274; 83630; 87493; 87506; 88305; J7030

== ENCOUNTER → 2022-11-01 05:58 | Day surgery (SDC) | payer OTHER, SELFPAY ==
[2022-11-01 08:28] VITALS: BP 99/68; PULSE 71; RESP 18; TEMP 36.3; O2SAT 96
== END ==
PROVIDERS: PCP Family Medicine; Visit Provider Family Medicine
DX: K51.90 Ulcerative colitis, unspecified, without complications (principal); Z79.899 Other long term (current) drug therapy
CPT/HCPCS: 96365; J2704

== ENCOUNTER → 2022-11-15 07:22 | Day surgery (SDC) | payer OTHER, SELFPAY ==
[2022-11-15 08:01] VITALS: BP 127/81; PULSE 83; RESP 18; TEMP 36; O2SAT 96
== END ==
PROVIDERS: PCP Family Medicine; Visit Provider Family Medicine
DX: K51.90 Ulcerative colitis, unspecified, without complications (principal); Z79.899 Other long term (current) drug therapy
CPT/HCPCS: 96365; J7050

== ENCOUNTER → 2022-12-13 09:31 | Day surgery (SDC) | payer OTHER, SELFPAY ==
[2022-12-13 10:23] VITALS: BP 102/75; PULSE 75; RESP 18; TEMP 36.2; O2SAT 98
--- NOTE | 2022-12-13 11:01 | PC.NURSE ---
Pt states today will be last dose of Entyvio. She will be changing to Humira.
== END ==
PROVIDERS: PCP Family Medicine; Visit Provider Family Medicine
DX: K51.90 Ulcerative colitis, unspecified, without complications (principal); Z79.899 Other long term (current) drug therapy
CPT/HCPCS: 96365; J7050

== ENCOUNTER 2023-01-17 07:05 | Outpatient (CLI) | payer OTHER, SELFPAY | END 2023-01-17 07:06 | disposition home or self-care (01) | PROVIDERS: PCP Family Medicine; Visit Provider Family Medicine | DX: K51.311 Ulcerative (chronic) rectosigmoiditis with rectal bleeding (principal); R15.2 Fecal urgency | CPT/HCPCS: 83993 ==

== ENCOUNTER 2023-01-20 07:22 | Outpatient (CLI) | payer OTHER, SELFPAY ==
[2023-01-20 07:52] LABS: Basophils % 0.2 %; Eosinophils # 0.2 10^3/uL (0.0-0.8); Eosinophils % 1.4 %; Hematocrit 36.3 % (36-47); Lymphocytes # 2.4 10^3/uL (0.8-4.8); Lymphocytes % 22.6 %; Mean Corpuscular HGB Conc 32.5 g/dL (30-55); Mean Corpuscular Hemoglobin 30.6 pg (27-33); Mean Platelet Volume 9.4 fL (7.4-10.4); Monocytes # 0.9 10^3/uL (0.2-0.9); Monocytes % 8.6 %; Neutrophils # 6.95 10^3/uL (1.8-7.7); Neutrophils % 66.7 %; Nucleated Red Blood Cells % 0 %; Platelet Count 284 10^3/cmm (157-399); Red Blood Count 3.86 10^6/uL (3.85-5.65); Red Cell Distribution Width 13.1 % (12.1-15.1); White Blood Count 10.42 10^3/uL (3.29-11.43)
[2023-01-20 08:11] LABS: Alanine Aminotransferase 45 U/L (0-33); Albumin Level 3.7 g/dL (3.5-5.2); Alkaline Phosphatase 56 U/L (35-105); Anion Gap 12.8 (5-19); Aspartate Amino Transferase 26 U/L (0-32); Blood Urea Nitrogen 15 mg/dL (6-20); Calcium 8.7 mg/dL (8.5-10.5); Carbon Dioxide 26 mmol/L (22-29); Chloride 105 mmol/L (98-107); Globulin 2.6 g/dL (1.3-4.6); Glomerular Filtration Rate 89.3 mL/min (90-130); Glucose 86 mg/dL (65-115); Osmolality Calculated 290 mOsm/kg (285-295); Potassium 3.8 mmol/L (3.5-5.1); Sodium 140 mmol/L (136-145); Total Bilirubin 0.3 mg/dL (0.15-1.2); Total Protein 6.3 g/dL (6.6-8.7)
[2023-01-20 08:26] LABS: 25 Hydroxy Vitamin D 35 ng/mL (30-100); Vitamin B12 675 pg/mL (232-1245)
[2023-01-22 14:35] LABS: Quantiferon Mitogen 8.52 IU/mL; Quantiferon Nil 0.01 IU/mL; Quantiferon Plus TB1 0.01 IU/mL; Quantiferon TB Gold NEGATIVE (NEGATIVE)
== END 2023-01-20 07:23 | disposition home or self-care (01) ==
LOC: LAB 07:25
PROVIDERS: PCP Family Medicine; Visit Provider Surgery Vascular Surgery
DX: K51.311 Ulcerative (chronic) rectosigmoiditis with rectal bleeding (principal); R53.83 Other fatigue
CPT/HCPCS: 36415; 80053; 82306; 82607; 85025; 86140; 86480

== ENCOUNTER 2023-04-15 12:49 | Outpatient (CLI) | payer OTHER, SELFPAY ==
--- NOTE | 2023-04-15 12:54 | XR_ITS ---
WS: [id number] SCREENING DEXA SCAN [employer] CLINICAL INFORMATION: HALFWAY SYSTEMIC STEROID USER COMPARISON: None. FINDINGS: The L1-L4 bone mineral density measures 0.990 g/cm2. This corresponds to a T score score of -1.6 and Z score of -1.9. Left femoral neck bone mineral density measures 0.866 g/cm2. This corresponds to a T score of -1.1 an d Z score of -1.1. Right femoral neck bone mineral density measures 0.837 g/cm2. This corresponds to a T score -1.4of an d Z score of -1.4. Mean femoral neck bone mineral density measures 0.851 g/cm2. This corresponds to a T score of -1.2 an d Z score of -1.3. IMPRESSION: Osteopenia lumbar spine. Osteopenia femoral necks. Patient's FRAX calculated 10 year probability for major osteoporotic fracture is 12.3% and osteoporot ic hip fracture is 1.3%.
== END 2023-04-15 12:50 | disposition home or self-care (01) ==
LOC: RAD 12:50
PROVIDERS: PCP Family Medicine; Visit Provider Nurse Practitioner Adult Health
DX: Z13.820 Encounter for screening for osteoporosis (principal); Z79.52 Long term (current) use of systemic steroids; M85.89 Other specified disorders of bone density and structure, multiple sites
CPT/HCPCS: 77080

== ENCOUNTER 2023-09-05 12:56 | Outpatient (CLI) | payer OTHER, SELFPAY ==
[2023-09-05 13:34] LABS: Basophils % 0.3 %; Eosinophils # 0.3 10^3/uL (0.0-0.8); Eosinophils % 3.4 %; Hematocrit 36.5 % (36-47); Lymphocytes # 1.8 10^3/uL (0.8-4.8); Lymphocytes % 24.2 %; Mean Corpuscular HGB Conc 32.9 g/dL (30-55); Mean Corpuscular Hemoglobin 30.2 pg (27-33); Mean Corpuscular Volume 91.7 fl (85-98); Mean Platelet Volume 9.5 fL (7.4-10.4); Monocytes # 0.5 10^3/uL (0.2-0.9); Neutrophils # 4.79 10^3/uL (1.8-7.7); Neutrophils % 64.7 %; Nucleated Red Blood Cells % 0 %; Platelet Count 304 10^3/cmm (157-399); Red Blood Count 3.98 10^6/uL (3.85-5.65); Red Cell Distribution Width 12.5 % (12.1-15.1)
[2023-09-05 13:57] LABS: Alanine Aminotransferase 20 U/L (0-33); Alkaline Phosphatase 58 U/L (35-105); Anion Gap 14.1 (5-19); Aspartate Amino Transferase 16 U/L (0-32); Blood Urea Nitrogen 12 mg/dL (6-20); Calcium 8.6 mg/dL (8.5-10.5); Carbon Dioxide 25 mmol/L (22-29); Chloride 104 mmol/L (98-107); Globulin 2.8 g/dL (1.3-4.6); Glomerular Filtration Rate 106.3 mL/min (90-130); Glucose 100 mg/dL (65-115); Osmolality Calculated 288 mOsm/kg (285-295); Potassium 4.1 mmol/L (3.5-5.1); Sodium 139 mmol/L (136-145); Total Bilirubin 0.4 mg/dL (0.15-1.2); Total Protein 6.8 g/dL (6.6-8.7)
[2023-09-05 15:20] LABS: 25 Hydroxy Vitamin D 37 ng/mL (30-100); Vitamin B12 474 pg/mL (232-1245)
== END 2023-09-05 12:57 | disposition home or self-care (01) ==
PROVIDERS: PCP Family Medicine; Visit Provider Nurse Practitioner Adult Health
DX: K51.311 Ulcerative (chronic) rectosigmoiditis with rectal bleeding (principal); K62.5 Hemorrhage of anus and rectum
CPT/HCPCS: 80053; 82306; 82607; 84439; 85025

== ENCOUNTER 2023-09-19 09:09 | Oncology outpatient (recurring) (ONCR) | payer OTHER, SELFPAY ==
[2023-09-19] MEDS: loratadine 10 mg Tablet PO (09:24)
[2023-09-19] MEDS: SODIUM CHLORIDE 0.9% IV (09:55)
[2023-09-19] MEDS: USTEKINUMAB IV (09:55)
[2023-09-19 11:10] VITALS: BP 119/83; PULSE 70; RESP 16; TEMP 36.9; O2SAT 98
== END 2023-09-19 23:59 | disposition home or self-care (01) ==
LOC: ONCMED 09:09
PROVIDERS: PCP Family Medicine; Visit Provider Nurse Practitioner Adult Health
DX: K51.311 Ulcerative (chronic) rectosigmoiditis with rectal bleeding (principal)
CPT/HCPCS: 96365; A4222; J3358; J7050

== ENCOUNTER 2023-12-16 15:37 | Outpatient (CLI) | payer OTHER, SELFPAY | END 2023-12-16 15:38 | disposition home or self-care (01) | LOC: LAB 15:38 | PROVIDERS: PCP Family Medicine; Visit Provider Nurse Practitioner Adult Health | DX: Z01.89 Encounter for other specified special examinations (principal) | CPT/HCPCS: 36415; 86480 ==

== ENCOUNTER → 2024-02-13 14:16 | Outpatient (BNVA) | payer OTHER, SELFPAY | PROVIDERS: PCP Family Medicine; Visit Provider Podiatrist Foot & Ankle Surgery | DX: M79.89 Other specified soft tissue disorders (principal) | CPT/HCPCS: 88304 ==

== ENCOUNTER 2024-05-26 11:02 | Outpatient (CLI) | payer OTHER, SELFPAY ==
[2024-05-26 11:52] LABS: Basophils % 0.2 %; Eosinophils # 0.3 10^3/uL (0.0-0.8); Eosinophils % 4.8 %; Hematocrit 38.3 % (36-47); Lymphocytes # 1.8 10^3/uL (0.8-4.8); Lymphocytes % 30.5 %; Mean Corpuscular HGB Conc 33.2 g/dL (30-55); Mean Corpuscular Hemoglobin 29.6 pg (27-33); Mean Corpuscular Volume 89.3 fl (85-98); Mean Platelet Volume 10.4 fL (7.4-10.4); Monocytes # 0.4 10^3/uL (0.2-0.9); Monocytes % 7.3 %; Neutrophils # 3.43 10^3/uL (1.8-7.7); Neutrophils % 56.9 %; Nucleated Red Blood Cells % 0 %; Platelet Count 277 10^3/cmm (157-399); Red Blood Count 4.29 10^6/uL (3.85-5.65); Red Cell Distribution Width 12.3 % (12.1-15.1); White Blood Count 6.03 10^3/uL (3.29-11.43)
[2024-05-26 12:11] LABS: Alanine Aminotransferase 42 U/L (0-33); Albumin Level 4.1 g/dL (3.5-5.2); Alkaline Phosphatase 68 U/L (35-105); Anion Gap 13.9 (5-19); Aspartate Amino Transferase 21 U/L (0-32); Blood Urea Nitrogen 15 mg/dL (6-20); Calcium 9.1 mg/dL (8.5-10.5); Carbon Dioxide 25 mmol/L (22-29); Chloride 103 mmol/L (98-107); Globulin 2.9 g/dL (1.3-4.6); Glomerular Filtration Rate 105.8 mL/min (90-130); Glucose 90 mg/dL (65-115); Osmolality Calculated 286 mOsm/kg (285-295); Potassium 3.9 mmol/L (3.5-5.1); Sodium 138 mmol/L (136-145); Total Bilirubin 0.4 mg/dL (0.15-1.2)
== END 2024-05-26 11:03 | disposition home or self-care (01) ==
LOC: LAB 11:04
PROVIDERS: PCP Family Medicine; Visit Provider Nurse Practitioner Adult Health
DX: K51.311 Ulcerative (chronic) rectosigmoiditis with rectal bleeding (principal)
CPT/HCPCS: 36415; 80053; 85025; 86140

== ENCOUNTER 2024-07-30 14:32 | Outpatient (CLI) | payer OTHER, SELFPAY ==
--- NOTE | 2024-07-30 14:35 | XR_ITS ---
WS: [id number] Exam: XR tibia fibula RT 2V [id number] Date/Time of Exam: 07/30/2024 2:52 PM Reason For Exam: M79.89 - Other specified soft tissue disorders No fracture. Articular relationships are intact at the knee and ankle. Normal soft tissues. XR/XR tibia fibula RT 2V [id number] IMPRESSION: 1. Negative RIGHT tibia and fibula.
== END 2024-07-30 14:33 | disposition home or self-care (01) ==
LOC: RAD 14:34
PROVIDERS: PCP Family Medicine; Visit Provider Podiatrist Foot & Ankle Surgery
DX: M79.89 Other specified soft tissue disorders (principal)
CPT/HCPCS: 73590

== ENCOUNTER → 2024-10-12 09:13 | Outpatient (BNVA) | payer OTHER, SELFPAY | PROVIDERS: PCP Family Medicine; Visit Provider Orthopaedic Surgery | DX: M54.9 Dorsalgia, unspecified (principal) | CPT/HCPCS: 72072 ==

== ENCOUNTER 2024-11-03 14:05 | Outpatient (CLI) | payer OTHER, SELFPAY ==
--- NOTE | 2024-11-03 14:30 | CT_ITS ---
WS: [id number] CT CHEST AND ABDOMEN WITH CONTRAST HISTORY: rib pain, trauma, history of breast cancer. TECHNIQUE: Axial imaging is performed through the chest and abdomen with IV and oral contrast.. Sagittal and coronal reformats. All CT scans at [facility] use at least one of these dose optimization techniques: automated exposure control; mA and/or kV adjustment per patient size (includes targeted exams where dose is matched to clinical indication); or iterative reconstruction. CONTRAST: Omnipaque 350; 100 mL IV. DLP: 609.85 mGy.cm COMPARISON: 01/28/[address]: Lungs are well-aerated. No pulmonary contusion or pneumothorax. No pericardial or pleural effusions. Normal size heart. Normal aorta and pulmonary artery. No adenopathy. Bilateral mastectomies with reconstructive breast implants. Acute, nondisplaced and nonhealed RIGHT lateral 10th rib fracture. No additional rib fractures are identified. No thoracic spine fracture. Abdomen CT: Liver and spleen are intact. No lacerations. Contracted gallbladder. Normal pancreas and adrenal glands. No renal obstruction. Normal aorta. No aneurysm. Normal appearance of the stomach and small bowel. No obstructive pattern. Mild constipation. The entire colon is not included as only a CT of the abdomen was requested. There is no ascites or hematoma. No mesenteric injury identified. Small umbilical hernia contains fat. CT/CT chest abd w con*[id number] IMPRESSION: 1. Acute, nondisplaced RIGHT lateral 10th rib fracture. 2. No liver or spleen lacerations. 3. No mesenteric injury identified. 4. No pulmonary contusion or pneumothorax. 5. Bilateral breast reconstructive surgery status post mastectomies.
[2024-11-03] MEDS: iohexol 350 mg/mL 500 mL Btl (per mL) IV (14:51)
== END 2024-11-03 14:06 | disposition home or self-care (01) ==
PROVIDERS: PCP Family Medicine; Visit Provider Orthopaedic Surgery
DX: R07.81 Pleurodynia (principal); K59.00 Constipation, unspecified; S22.31XA Fracture of one rib, right side, initial encounter for closed fracture; X58.XXXA Exposure to other specified factors, initial encounter; Z42.1 Encounter for breast reconstruction following mastectomy; K42.9 Umbilical hernia without obstruction or gangrene
CPT/HCPCS: 71260; 74160

== ENCOUNTER 2024-11-22 11:57 | Outpatient (CLI) | payer OTHER, SELFPAY ==
[2024-11-22 13:47] LABS: Hematocrit 34.5 % (36-47); Hemoglobin 11.70 g/dL (11.27-16.99); Mean Corpuscular HGB Conc 33.9 g/dL (30-55); Mean Corpuscular Hemoglobin 30.1 pg (27-33); Mean Corpuscular Volume 88.7 fl (85-98); Nucleated Red Blood Cells % 0 %; Platelet Count 307 10^3/cmm (157-399); Red Blood Count 3.89 10^6/uL (3.85-5.65); White Blood Count 6.57 10^3/uL (3.29-11.43)
[2024-11-22 14:25] LABS: Alanine Aminotransferase 45 U/L (0-33); Albumin Level 4.2 g/dL (3.5-5.2); Alkaline Phosphatase 87 U/L (35-105); Anion Gap 14.8 (5-19); Aspartate Amino Transferase 18 U/L (0-32); Blood Urea Nitrogen 19 mg/dL (6-20); Calcium 8.7 mg/dL (8.5-10.5); Carbon Dioxide 26 mmol/L (22-29); Chloride 106 mmol/L (98-107); Globulin 2.6 g/dL (1.3-4.6); Glucose 93 mg/dL (65-115); Osmolality Calculated 298 mOsm/kg (285-295); Potassium 3.8 mmol/L (3.5-5.1); Sodium 143 mmol/L (136-145); Thyroid Stimulating Hormone 1.63 uIU/mL (0.27-4.20); Total Protein 6.8 g/dL (6.6-8.7); Vitamin B12 466 pg/mL (232-1245)
== END 2024-11-22 11:58 | disposition home or self-care (01) ==
PROVIDERS: PCP Family Medicine; Visit Provider Nurse Practitioner Adult Health
DX: K51.311 Ulcerative (chronic) rectosigmoiditis with rectal bleeding (principal)
CPT/HCPCS: 80053; 82306; 82607; 84443; 85025; 86140; 86480

== ENCOUNTER 2025-02-10 14:05 | Outpatient (CLI) | payer OTHER, SELFPAY ==
--- NOTE | 2025-02-10 14:14 | XR_ITS ---
WS: [id number] Left foot, 3 views, 02/10/2025 Clinical Data: Fifth metatarsal pain Comparison: Left foot, 01/31/2022 Findings: No fractures or dislocations are seen. No bone destruction or erosion is noted. The joint spaces and soft tissues are normal. XR/XR foot LT min 3V* [id number] Impression: Negative left foot.
== END 2025-02-10 14:06 | disposition home or self-care (01) ==
PROVIDERS: PCP Family Medicine; Visit Provider Podiatrist Foot & Ankle Surgery
DX: M77.42 Metatarsalgia, left foot (principal)
CPT/HCPCS: 73630

== ENCOUNTER 2025-04-18 08:54 | Oncology outpatient (recurring) (ONCR) | payer OTHER, SELFPAY ==
[2025-04-18 09:18] VITALS: BP 118/86; PULSE 84; RESP 17; TEMP 36.6; O2SAT 99
[2025-04-18] MEDS: [UNRECOGNIZED DRUG - OTHER] IV (09:51)
[2025-04-18] MEDS: SODIUM CHLORIDE 0.9% IV (09:51)
[2025-04-18 11:57] VITALS: BP 101/68; PULSE 74; RESP 18; TEMP 36.6; O2SAT 98
[2025-04-18 12:15] VITALS: BP 96/64; PULSE 84; RESP 17; TEMP 36.6; O2SAT 98
--- NOTE | 2025-04-18 16:52 | PC.NURSE ---
Patient has had a recent diagnosis of flu with no temp since 04-14-[address] Calloway office notified for infusion of the Skyrizi did approve treatment and follow plan of care with the patient informed to come for her treatmentDr Lo Calloway [phone] fax [phone] Office number direct nurse Traci [phone]
== END 2025-04-18 23:59 | disposition home or self-care (01) ==
PROVIDERS: PCP Family Medicine; Visit Provider Nurse Practitioner Adult Health
DX: Z53.9 Procedure and treatment not carried out, unspecified reason; K51.90 Ulcerative colitis, unspecified, without complications; Z79.899 Other long term (current) drug therapy
CPT/HCPCS: 96413; 96415; J2327; J7050; J9999